=== PATIENT | female | born 2000 | race Caucasian/White ===

== ENCOUNTER 2020-02-11 11:54 | Outpatient (NON) | payer BC, SELFPAY ==
[2020-02-11 22:39] LABS: SARS-CoV-2 RNA PCR Negative
== END 2020-02-11 11:55 ==
PROVIDERS: PCP Physician Assistant; Visit Provider Physician Assistant
DX: R05 Cough (principal); J01.40 Acute pansinusitis, unspecified; Z20.828 Contact with and (suspected) exposure to other viral communicable diseases
CPT/HCPCS: 87635; C9803; U0003

== ENCOUNTER 2021-04-23 08:28 | Emergency (ER) | payer OTHER, SELFPAY ==
[2021-04-23] VITALS (8 sets, daily range): BP systolic 111–152; BP diastolic 82–113; PULSE 94–126; RESP 18–20; TEMP 36.1–36.8; O2SAT 98–100
--- NOTE | ~2021-04-23 | XR_ITS ---
EXAMINATION: XR chest 1V portable DATE: 04/23/2021 09:38 INDICATION: Shortness of breath and cough and dizziness. TECHNIQUE: A single frontal view of the chest was obtained. COMPARISON: Chest 2 views 11/26/2018, CT 11/26/2018 FINDINGS: The chest demonstrates clear lungs without pneumonia, pleural effusion, or pneumothorax. Th e heart size is normal. IMPRESSION: 1. No acute cardiopulmonary disease. Reviewed, dictated and finalized at location A. NESS OBJECTS ARCHITECT
--- NOTE | 2021-04-23 09:24 | ECG_ITS ---
Measurements Intervals [place] Rate: 96 P: 76 HI: 131 QRS: 83 QRSD: 108 T: 55 QT: 381 QTc: 481 Interpretive Statements SINUS RHYTHM NORMAL ECG Electronically Signed On 04-23-2021 18:20:16 BALLAST CLEANING OPERATOR by Derrick Fuller D.O.
--- NOTE | 2021-04-23 09:26 | ED.URI ---
HPI - URI/Sore Throat General Chief Complaint: Upper Respiratory Infection Stated Complaint: URI x3 weeks, Hives Time Seen by Provider: 04/23/21 09:14 Source: patient, RN notes reviewed and old records reviewed Mode of arrival: ambulatory Limitations: no limitations History of Present Illness HPI Narrative: This is a 21 year old female with history of IV drug use who presents for evaluation of URI symptoms with nausea, vomiting and shortness of breath. She developed runny nose, sinus drainage and congestion 3 weeks ago. She has greenish mucous when she blows of her nose and coughs. She states her symptoms have not improved. Her first week of symptoms she reports having fever 101 F. Last night, she develop nausea, vomiting and hives. Her hives have resolved. She does admit to using methamphetamine last night. She denies diarrhea, chest pain or abdominal pain. Her temperature last night was 99 F. She also complains of shortness of breath due to copious sinus drainage. She is unsure of sick contacts. She is vaccinated for covid. She has not sought treatment for her symptoms in past 3 weeks. Related Data Allergies Allergy/AdvReac Type Severity Reaction Status Date / Time Cephalosporins Allergy Swelling Verified 04/23/21 09:28 of Lip/Tongue/Throat Review of Systems Review of Systems: All systems reviewed & are unremarkable except as noted in HPI and below PMFSH Past Medical History Medical History (Updated 04/23/21 @ 12:27 by Siomara Malloy MD) Bipolar disorder Previous known suicide attempt Surgical History Surgical History (Updated 03/04/19 @ 12:47 by Luis Angel Santos) History of tonsillectomy Social History Social History (Updated 04/23/21 @ 09:36 by Siomara Malloy MD) Alcohol intake: never Substance use: current Substance use type: IV drugs and methamphetamine Gender identity (if verbalized by the patient): Female Exam Const: General: no acute distress and alert Orientation/consciousness: patient oriented x3 HENMT: Head: normocephalic and atraumatic General nose exam: No nasal discharge present Face and sinus: sinuses nontender and face symmetric Mouth: Yes Normal oral and palatal mucosa present, Yes lip normal, Yes tongue normal, Yes oropharynx normal and Yes moist mucous membranes Throat: posterior oropharynx normal, tonsils normal and uvula midline Eyes: Pupils: Equal, round and reactive pupils present EOM: EOMs intact bilaterally Resp: Effort & Inspection: normal respiratory effort and no retractions Auscultation: clear to auscultation bilaterally Cardio: Rate: tachycardic Rhythm: regular rhythm Heart sounds: no murmurs GI: GI Palp: Yes Soft to palpation, No Tenderness to palpation present (GI) and No Guarding due to palpation present (GI) Auscultation: normal bowel sounds Skin: General skin exam: normal color Rashes: no rashes Neuro: General: patient oriented x3, moves all extremities and CN's II-XI intact bilaterally Psych: Mental Status: mental status grossly normal Affect: normal affect Course Reevaluation(s) Reevaluation #1: PAtient was able to ambulate with oxygen saturation staying about 98% on room air. She was hydrated and I informed her that she has covid. I also discussed with patient when to return to ER. Date: 04/23/21 Time: 12:24 Vital Signs Vital signs: Vital Signs Temperature 96.9 F L 04/23/21 08:32 Pulse Rate 120 H 04/23/21 08:32 Respiratory Rate 18 04/23/21 08:32 Blood Pressure 131/86 04/23/21 08:32 Temperature 98.3 F 04/23/21 09:14 Pulse Rate 104 H 04/23/21 12:57 Respiratory Rate 20 04/23/21 12:57 Blood Pressure 130/82 04/23/21 12:57 Pulse Oximetry 100 04/23/21 12:57 MDM - URI/Sore Throat Lab Data Attestation: I reviewed the patient's lab results. Result diagrams: 04/23/21 10:07 04/23/21 10:07 Labs: Lab Results 04/23/21 04/23/21 04/23/21 Range/Units
[2021-04-23 10:17] LABS: Basophils Percent Auto 0.3 % (0.2-1.2); Eosinophils Percent Auto 0.2 % (0-4.4); Hematocrit 42.8 % (37.0-47.0); Hemoglobin 14.7 g/dL (12.0-15.0); Immature Granulocyte Absolute 0.02 K/mm3 (0.00-0.031); Immature Granulocyte Percent A 0.2 % (0-0.5); Lymphocytes Absolute Auto 1.89 K/mm3 (0.9-3.2); Lymphocytes Percent Auto 17.6 % (18.3-44.2); Mean Corpuscular HGB Conc 34.3 g/dl (32-36); Mean Corpuscular Hemoglobin 29.5 pg (26-34); Mean Corpuscular Volume 85.8 fl (80-100); Mean Platelet Volume 8.2 fl (7.4-10.4); Monocytes Absolute Auto 0.9 K/mm3 (0.1-0.6); Monocytes Percent Auto 8.3 % (2.6-8.5); Neutrophils Absolute Auto 7.9 K/mm3 (1.3-6.7); Neutrophils Percent Auto 73.4 % (45.5-73.1); Platelet Count Result 357 k/mm3 (150-375); Red Blood Count 4.99 M/mm3 (4.2-5.4); Red Cell Distribution Width 11.9 % (11.5-14.5); White Blood Count 10.7 K/mm3 (4.5-10.0)
[2021-04-23 10:27] LABS: Prothrombin Time 13.3 Seconds (11.1-14.7)
[2021-04-23 10:28] LABS: Partial Thromboplastin Time 30.1 SECONDS (22.3-36.8)
[2021-04-23 10:29] LABS: Alanine Aminotransferase 19 U/L (4-35); Albumin Level 4.7 g/dL (3.5-5.1); Alkaline Phosphatase 86 U/L (38-126); Anion Gap 11 mmol/L (8-16); Aspartate Amino Transferase 35 U/L (14-36); Bilirubin,Total 0.8 mg/dL (0.2-1.3); Blood Urea Nitrogen 15 mg/dL (7-17); Calcium 9.3 mg/dL (8.4-10.2); Carbon Dioxide 26 mmol/L (22-30); Chloride 101 mmol/L (98-107); Estimated CRCL calculation 99 ml/min; Estimated Glomerular Filt Rate > 60; Glucose 106 mg/dL (65-110); Lipase 45 U/L (23-300); Potassium 3.9 mmol/L (3.4-5.0); Sodium 138 mmol/L (137-145)
[2021-04-23 10:30] LABS: D Dimer 0.33 ug/mL (<0.48)
[2021-04-23 10:56] LABS: SARS-CoV-2 RNA PCR Positive
[2021-04-23] MEDS: ONDANSETRON INJ 4 MG/2 ML VIAL IV PUSH (10:56)
[2021-04-23] MEDS: LACTATED RINGERS 1,000 ML 999 ML IV CONT (10:57)
[2021-04-23] MEDS: SODIUM CHLORIDE 0.9% IV 1,000 ML 999 ML IV CONT (10:57)
[2021-04-23 10:58] LABS: Add Urine Microscopic? YES; Appearance Urine Clear (Clear); Bilirubin Urine Negative (Negative); Blood Urine Negative (Negative); Color Urine Yellow (Yellow); Glucose Urine UA Negative (Negative); Ketones Urine Negative (Negative); Leukocyte Esterase Ur Trace LEU/UL (Negative); Mucus Urine Few /lpf; Nitrate Urine Negative (Negative); Protein Urine 1+ mg/dL (Negative); Specific Grav Ur 1.025 (1.001-1.035); Squamous Epithelial Cell Urine Many /hpf (Few); Urobilinogen Urine Negative mg/dL (<2.0); WBC Urine 0-3 /hpf
--- NOTE | 2021-04-23 11:05 | PC.NURSE ---
THOR Malloy notified about moderate suicidal risk.
[2021-04-23 11:08] LABS: Lactic Acid Reflex 0.9 mmol/L (0.7-2.1)
--- NOTE | 2021-04-23 12:22 | PC.NURSE ---
patient ambulated with pulse ox and oxygen level was 98% while ambulating.
== END 2021-04-23 13:00 | disposition home or self-care (01) ==
PROVIDERS: Emergency Provider General Practice; PCP Physician Assistant
DX: U07.1 COVID-19 (principal); J06.9 Acute upper respiratory infection, unspecified
CPT/HCPCS: 36415; 71045; 80053; 81001; 81025; 83605; 83690; 83735; 85025; 85380; 85610; 85730; 87804; 93005; 96361; 96374; 99284; C9803; J2405; J7030; J7120; U0003; U0005

== ENCOUNTER 2021-05-03 17:12 | Emergency (ER) | payer OTHER, SELFPAY | END 2021-05-03 18:04 | disposition left against medical advice (07) | PROVIDERS: PCP Physician Assistant | DX: Z53.21 Procedure and treatment not carried out due to patient leaving prior to being seen by health care provider (principal) | CPT/HCPCS: 99199 ==

== ENCOUNTER 2024-09-06 05:59 | Emergency (ER) | payer BC, SELFPAY ==
--- OUTSIDE RECORDS SUMMARY | 2024-09-06 06:01 | XMS_ITS | Referral Summary ---
Author Organization [facility] Address [address] [place] [address] Care Team Providers Care Custom Applicator Name Role Phone No, Physician Primary Care Provider [phone] Jaci Chaudhari Unavailable [phone] Allergies Active Allergy Reactions Criticality Noted Date Comments Sulfa (Sulfonamide Antibiotics) Hives Medium 09/16 Medications busPIRone (BUSPAR) 15 mg tabletIndications: Generalized Anxiety Disorder Take 1 tablet (15 mg total) by mouth 3 (three) times a day 90 tablet 2 0 Active sulfacetamide (BLEPH-10) 10 % ophthalmic solutionIndication s:Bacterial Conjunctivitis Administer 1-2 drops into both eyes every 4 (four) hours 5 mL 2 Active Active Problems Problem Noted Date Diagnosed Date Family planning counseling 08/08/2020 Assessment & Plan (08/08/2020 11:11 PM CDT): Discussed family planning with patient at length. Reviewed control options but she still is adamant about not wanting to initiate new control. She verbalizes the understanding that her Depo-Provera no longer is covering her for prevention and that she could get and any time. She can always use condoms if she wants to have contraception on board until she is able to get back in to the office if she changes her mind. Encouraged vitamin. She states she prefers to get it [id number]. Also discussed a marijuana exposure as well as smoking exposure during early and encouraged her to stop so that that would not have exposure if this does happen. Strongly encouraged her to also stop so she can seek care for her mental health concerns again to have the safest possible. She may call at any time for assistance. Annual physical exam 05/16/2020 Folliculitis 05/08/2020 Assessment & Plan (05/08/2020 4:47 PM WELFARE VISITOR): Appears to be folliculitis. Probably secondary to shaving. Rx keflex sent to pharmacy. Stop shaving. If sxs increase she is to followup sooner. Positive depression screening 05/08/2020 Assessment & Plan (05/08/2020 4:53 PM WELFARE VISITOR): Encouraged to make and keep appointment with counselor. Have provided names multiple times. She is planning on going to [facility]. Screening examination for ST D (sexually transmitted disease) 05/08/2020 Need for immunization against influenza 03/01/20 20 Assessment & Plan (03/01/2020 11:27 AM WELFARE VISITOR): Updated in office today Cough 02/02/2020 Assessment & Plan (02/10/2020 4:42 PM CDT): Advised her to assume as test has not been completed that she could still have covid 19 despite not having all of symptoms. Will fax order for test to [facility] at her request. Asked her to contact office if she hasn't heard result in 48h. Advised f/u in 1w if not improving, sooner if worsening. Advised her to start claritin 10mg po every day. Advised eating when starting zpack as it can cause gi upset. Assessment & Plan (02/02/2020 2:05 PM CDT): Advised her to continue with sudafed. Will order covid-19 testing, advised quarantining until results are available. Advised to er if symptoms are worsening. Advised tylenol q6h prn fever. Nasal congestion 02/02/2020 Assessment & Plan (02/02/2020 2:05 PM CDT): Advised her to continue with sudafed. Will order covid-19 testing, advised quarantining until results are available. Advised to er if symptoms are worsening. Advised tylenol q6h prn fever. Acute non-recurrent pansinusitis 02/02/2020 Assessment & Plan (02/10/2020 4:42 PM CDT): Advised her to assume as test has not been completed that she could still have covid 19 despite not having all of symptoms. Will fax order for test to [facility] at her request. Asked her to contact office if she hasn't heard result in 48h. Advised f/u in 1w if not improving, sooner if worsening. Advised her to start claritin 10mg po every day. Advised eating when starting zpack as it can cause gi upset. Assessment & Plan (02/02/2020 2:05 PM CDT): Advised her to continue with sudafed. Will order covid-19 testing, advised quarantining until results are available. Advised to er if symptoms are worsening. Advised tylenol q6h prn fever. Toe pain 11/16/2019 Assessment & Plan (11/16/2019 9:38 PM CDT): Seems to be resolving. Recommend to monitor. Reviewed nail cutting. Encounter for management and injection of depo-P rovera 11/10/2019 Assessment & Plan (05/08/2020 4:47 PM WELFARE VISITOR): DepoProvera due May 17. ; Assessment & Plan (03/01/2020 11:26 AM WELFARE VISITOR): DepoProvera given today from office supply Due for next injection May 17 Assessment & Plan (12/13/2019 3:18 PM CDT): UPT in office was negative. Start DepoProvera as she is on D 3 of her period. F>u in 12 weeks (Feb 25-) for next injection and in 4 weeks to remove the Implanon. Assessment & Plan (11/16/2019 9:39 PM CDT): UPT in office was indeterminate. Possible positive line present. Recommend Bhcg before initiating the DepoProvera. Needs to be within 7 days of starting period. Pain of left hand 11/09/2019 Assessment & Plan (11/09/2019 7:39 PM CDT): Ice to area. Check xrays. Dysuria 11/09/2019 Assessment & Plan (11/09/2019 7:39 PM CDT): Send urine for culture-- Macrobid 100mg bid x 5 days. Reviewed proper wiping. Moderate episode of recurrent major depressive d isorder 10/02/2019 Assessment & Plan (08/08/2020 11:10 PM CDT): Continue to follow with [facility] psychiatrist and counseling Assessment & Plan (05/08/2020 4:54 PM WELFARE VISITOR): Probable bipolar diagnosis. Has tried multiple meds but doesn't consistently stay on them. Encouraging appt with psychiatry. Plans to call [place] and has contact information. Assessment & Plan (03/01/2020 11:29 AM WELFARE VISITOR): Strongly encouraged patient to follow-up with the psychiatrist. Encouraged her to call [facility] notice it is possible to make the appointment. She is currently using the BuSpar with fair control of her symptoms but there is still a strong tendency towards bipolar that has been untreated. She voices understanding will try to call today. Assessment & Plan (01/14/2020 8:08 PM CDT): Depression vs bipolar vs other dx. Pt has stopped her medication multiple times. Recommend referral to psychiatrist and encouraged trying another counselor. Will monitor. Assessment & Plan (01/11/2020 3:19 PM CDT): Continue BuSpar x3. She stop the Zoloft and does not want to start anything at this point. Encouraged her to come to monitor closely as her emotions seem to swing quickly. Assessment & Plan (11/09/2019 7:40 PM CDT): Increase Zoloft to 100mg and Buspar to 15mg tid. Followup in 4 weeks. Assessment & Plan (10/02/2019 10:16 PM CDT): Discussed patients mental health at length. Discused considering inpatient vs outpatient care. She wants to try outpatient first. If sxs increase will immediately consider ER evaluation. Will start with the diagnosis of anxiety and depression. Discussed referral to psychiatrist. She is willing but will at least start medication for the depression/anxiety. Reviewed risks, benefit, alternatives, side effects and proper use. Start Zoloft and Buspar. She has suicide hotline number on her take home sheet as well as our contact information. She agrees to call immediately if she has suicidal thoughts/plans. Strongly encouraged counseling. Provided online contacts as well as local. She will call today. Encouraged to find a peaceful living situation. Irregular menses 05/15/2019 Assessment & Plan (08/08/2020 11:09 PM CDT): Probably secondary to Depo-Provera use but patient is not using contraception so if she does not have a period in early August as expected she will need to do a test. Assessment & Plan (05/15/2019 11:02 PM WELFARE VISITOR): Will monitor after removing Nexplanon--- Will start NuvaRing. Resolved Problems Problem Noted Date Diagnosed Date Resolved Date BMI less than 19,adult 05/06/202007/28 Assessment & Plan (05/06/2020 10:45 AM WELFARE VISITOR): Weight/BMI is in healthy range. Continue healthy lifestyle to maintain. Nexplanon removal 01/12/2020 03/01/2020 Assessment & Plan (01/14/2020 8:07 PM CDT): Pt presents today for Nexplanon Removal. Discussed Nexplanon removal with the patient. Reviewed procedure, risks, benefits, alternatives. All questions were answered and patient desires to proceed. The device was palpated in the right arm. The arm was positioned and cleansed with betadine x3. Sterile field created. Area infiltrated with Xylocaine with Epi. Once good anesthesia was obtained an incision was made with blade. Device was pushed out through the opening and grasped by MA with mosquito forceps. She had a lot of scar tissue holding the device the place which required the tissue to be wiped down and device removed fully intact. Steristrips applied. Minimal bleeding. Full sensation in arm/fingers. Pressure bandage applied. Pt tolerated well. Keep bandage of for 2-3 days. Allow steristrips to just fall off. Call if has s/s infection. . Uses control 12/13/2019 0 Assessment & Plan (01/11/2020 3:19 PM CDT): Will initiate Depo-Provera today. UPT was negative in office. She will continue to obtain injection every 12 weeks. Will remove Nexplanon in about a month. Crush injury to finger, initial encounter 06/28/2019 10/02/2019 Assessment & Plan (06/28/2019 10:55 PM CDT): Finger crushed in the car. Only the very tip is tender and the nail. Xrays are probably not necessary. Recommend ice/elevation and NSAIDs. Put her in a finger splint for comfort and to encourage others to avoid the hand/finger. Will reassess at next weeks appt. BMI less than 19,adult 06/28/201905/06 Assessment & Plan (03/01/2020 11:22 AM WELFARE VISITOR): Weight/BMI is in healthy range. Continue healthy lifestyle to maintain. \ Assessment & Plan (12/13/2019 3:14 PM CDT): Weight/BMI is in healthy range. Continue healthy lifestyle to maintain. Assessment & Plan (11/09/2019 7:40 PM CDT): Weight/BMI is in healthy range. Continue healthy lifestyle to maintain. Assessment & Plan (06/28/2019 10:56 PM CDT): Weight/BMI is in healthy range. Continue healthy lifestyle to maintain. Annual physical exam 05/15/2019 020 Assessment & Plan (05/15/2019 11:02 PM WELFARE VISITOR): Encouraged healthy lifestyle, good nutrition and exercise. Encouraged Calcium and Vitamin D and weight bearing exercise for bone health. Reviewed immunizations Reviewed age appropirate screenings. Declines STD screening Other fatigue 05/15/2019 10/02/2019 Assessment & Plan (05/15/2019 11:04 PM WELFARE VISITOR): Probably multifactorial. Check labs and followup to re-evaluate BMI less than 19,adult 05/15/201911/08 Assessment & Plan (06/27/2019 11:46 AM CDT): BMI Follow-up includes: Discussed diet and exercising counseling. Assessment & Plan (05/15/2019 11:03 PM WELFARE VISITOR): Weight/BMI is in healthy range. Continue healthy lifestyle to maintain. control counseling 05/15/201905/2019 Assessment & Plan (05/15/2019 11:03 PM WELFARE VISITOR): Reviewed with patient the control options including ocp, ring, patch, Nexplanon, DepoProvera, IUDs and condoms/barriers. Reviewed risks, benefits, alternatives, side effects and proper use. She is most interested in nuva Ring. Will have her insert the Ring on Sunday. Leave in 3 weeks and then take out 4th week to have a cycle. Will have her followup in June to remove Nexplanon so she wont have a break in contraception. Chlamydia 01/12/2019 11/09/2019 Assessment & Plan (01/12/2019 4:31 PM CDT): Confirmed upon return of results. Pt was notified: Culture returned positive for Chlamydia. This is a sexually transmitted disease that can be fully treated with an antibiotic. --Zithromax 1gm one time dose. --Partner must be treated. Refrain from intercourse until both are treated. --Report to Health Department. Can repeat a test of cure in 2 weeks if desired. Set appointment Screening examination for ST D (sexually transmitted disease) 01/12/2019 10/02/2019 Assessment & Plan (05/15/2019 11:04 PM WELFARE VISITOR): Pt declines Assessment & Plan (01/12/2019 4:32 PM CDT): Check STDs. No known exposure. Encouraged condoms/safe sexual practice. Dysuria 01/12/2019 10/02/2019 Assessment & Plan (01/12/2019 4:32 PM CDT): Send urine for culture. Empirically treat with macrobid. Nexplanon in place 01/01/2019 0 Overview (01/01/2019): 05/2016 placed at [facility]. Assessment & Plan (12/13/2019 3:14 PM CDT): Plan removal after been on DepoProvera for a month. Assessment & Plan (10/02/2019 10:09 PM CDT): Will schedule removal at next visit. Assessment & Plan (05/15/2019 11:03 PM WELFARE VISITOR): Plan removal in June Immunizations Immunization Administration Dates Next Due DTP 03/11/2001 DTaP 11/26/2001,2000,2000 HPV, Unspecified 05/14/2018 HPV9 05/14/2018 Hep B, Adolescent or Pediatric 2000,1999 HiB 2000,2000 IPV 03/11/2001,2000,2000 Influenza, Quadrivalent, Spl it, Preservative Free, Intramuscular 03/01/2020 Influenza, Split 03/09/2009 Influenza, Unspecified 05/14/2019(Deferred: Caro ent Refused) Social History Tobacco Use Types Packs/Day Years Used Date Smoking Tobacco: Never Smokeless Tobacco: Never Tobacco Cessation:Counseling Given: Not Answered Alcohol Use Standard Drinks/Week Comments Never 0 (1 standard drink = 0.6 oz pur e alcohol) AUDIT-C Answer Date Recorded Frequency of Alcohol Consumption Never 01/01/2019 Average Number of Drinks Not on file 019 Frequency of Binge Drinking Not on file 12/15 PHQ-2 Answer Date Recorded PHQ-2 Total Score (If total score is 3 or more points, staff should administer the PHQ-9) 3 05/06/2020 Personal Safety Answer Date Recorded Have you ever been in or are you currently in a harmful physical or emotional relationship or is someone making you feel afraid or unsafe? Denies 05/08/2024 Comments Unknown Sex and Gender Information Value Date Recorded Sex Assigned at Not on file Legal Sex Female 9:14 AM WELFARE VISITOR Gender Identity Not on file Sexual Orientation Not on file Occupation Industry Job Start Date Job End Date unemployed Not on file Not on file Not on file Last Filed Vital Signs Vital Sign Reading Time Taken Comments Blood Pressure 101/60 05/09/2024 3:30 AM WELFARE VISITOR Pulse 93 05/09/2024 3:45 AM WELFARE VISITOR Temperature 36.3 C (97.3 F) 05/08/2024 11:19 PM WELFARE VISITOR Respiratory Rate 18 05/09/2024 2:44 AM WELFARE VISITOR Oxygen Saturation 98% 05/09/2024 3:45 AM WELFARE VISITOR Inhaled Oxygen Concentration - - Weight 58.2 kg (128 lb 4.9 oz) 10/13/2022 11:38 AM CDT Height 170.2 cm (5' 7 ) 02/10/2022 4:47 AM CDT Body Mass Index 20.1 02/10/2022 4:47 AM CDT Plan of Treatment Not on file Procedures Procedure Name Priority Date/Time Associated Diagnosis Comments HEPATITIS PANEL, ACUTE Routine 01/08/2019 2:01 PM CDT Screening examination for STD (sexually transmitted disease) from Last 3 Months or Most Recently Relevant to Health Maintenance Results * Hepatitis panel, acute (01/08/2019 2:01 PM CDT) Hep A IgM NON-REACT SORAYA NON-REACT SORAYA [facility] [place] HepBsAg NON-REACT SORAYA NON-REACT SORAYA [facility] [place] Hep B core IgM NON-REACT SORAYA NON-REACT SORAYA [facility] [place] Hep C Ab NON-REACT SORAYA NON-REACT SORAYA [facility] [place] SIGNAL TO CUT-OFF 0.08 <1.00 [facility] [place] Comment: HCV antibody was non-reactive. There is no laboratory evidence of HCV infection. In most cases, no further action is required. However, if recent HCV exposure is suspected, a test for HCV RNA (test code 68890) is suggested. For additional information please refer to http://education.Ventario/faq/QBA83q3 (This link is being provided for informational/ educational purposes only.) Blood specimen (specimen) 01/08/2019 2:01 PM CDT 01/08/2019 2:01 PM CDT Narrative [facility] - 01/09/2019 7:17 PM CDT FASTING:NO FASTING: NO Resulting Agency Comment Performing Organization Information: Site ID: [id number] Name: [facility] Address: [address] [place] [address] [place] [address] Director: Nolan Lacy D.O., MPH [facility] MICROBIOLOGY - GENERAL ORDERABLES Final Result [facility] [place] from Last 3 Months or Most Recently Relevant to Health Maintenance Insurance [facility] [place] [address] [facility] Care Teams Custom Applicator Relationship Specialty Start Date End Date No, Physician PCP - General Neurology 10/13/22 Jaci Chaudhari PA [address] [facility] [address] [place] [address] Internal Medicine 10/13/22
--- OUTSIDE RECORDS SUMMARY | 2024-09-06 06:01 | XMS_ITS | Clinical Summary ---
Author Organization [facility] Address [address] [place] [address] Phone Care Team Providers Care Aerospace Project Manager Name Role Phone Liam Chaudhariwna Nataly PAC Primary Care Provider [phone] Allergies Active Allergy Reactions Criticality Noted Date Comments Sulfa Antibiotics Swelling 12/14/2021 Medications busPIRone (BUSPAR) 15 MG Tablet Take 15 mg by mouth daily. 11/13/2019 Active Active Problems Problem Noted Date Diagnosed Date Acute pyelonephritis 12/15/2021 Marijuana abuse 12/15/2021 Methamphetamine abuse 12/15/2021 Overview (12/15/2021): iv Social History Tobacco Use Types Packs/Day Years Used Date Smoking Tobacco: Never Smokeless Tobacco: Never Alcohol Use Standard Drinks/Week Comments Never 0 (1 standard drink = 0.6 oz pur e alcohol) Comments No Sex and Gender Information Value Date Recorded Sex Assigned at Not on file Legal Sex Female 11:42 PM CDT Gender Identity Not on file Sexual Orientation Not on file Last Filed Vital Signs Vital Sign Reading Time Taken Comments Blood Pressure 108/70 10/18/2022 8:15 PM CDT Pulse 93 10/18/2022 8:15 PM CDT Temperature 36.4 C (97.6 F) 10/18/2022 6:27 PM CDT Respiratory Rate 16 10/18/2022 8:15 PM CDT Oxygen Saturation 100% 10/18/2022 8:15 PM CDT Inhaled Oxygen Concentration - - Weight 56.7 kg (125 lb) 10/18/2022 6:27 PM CDT Height 170.2 cm (5' 7 ) 10/18/2022 6:27 PM CDT Body Mass Index 19.58 10/18/2022 6:27 PM CDT Plan of Treatment Health Maintenance Due Date Last Done Comments Hepatitis C Virus (HCV) Screening 2000 TdaP Immunization 2000 Hepatitis B Immunization (3 of 3 - 3-dose series) 2000 2000, 2000 Human Papillomavirus (HPV) Immunization (2 - 3-dose series) 06/11/2018 05/14/2018, 05/14/2018 Pap Smear 2021 Influenza Immunization (#1) 2023 03/01/2020 SARS-COV-2 Immunization ( season) 2023 09/30/2020, 09/02/2020 Respiratory Syncytial Virus (RSV) Immunization (Adult) (1 - 1-dose 75+ series) 2075 DTaP/Tdap/Td Immunization Discontinued 2001, 03/11/2001, 2000, Additional history exists Meningococcal Immunization (ACWY) Aged Out No longer eligible based on patient's age to complete this topic Pneumococcal Immunization Combined Aged Out No longer eligible based on patient's age to complete this topic Rotavirus Immunization Aged Out No lo nger eligible based on patient's age to complete this topic Insurance [place]ID [place] Advance Directives * Full Code (Latest Code Status on File) Date Activated Date Inactivated Comments 12/15/2021 3:33 AM 12/17/2021 3:16 PM CPR-Full Treat ment: FULL ARREST: Attempt Resuscitation/CPR wit intubation and mechanical ventilation. PRE-ARREST: Use entire range of life support measures to stabilize the patient. Care Teams Aerospace Project Manager Relationship Specialty Start Date End Date Jaci Chaudhari, MAGDALENA PCP - General Physician Outgoing Inspector 12/17/21
--- OUTSIDE RECORDS SUMMARY | 2024-09-06 06:01 | XMS_ITS | Clinical Summary ---
Author Organization [facility] Address [address] [place] [address] Care Team Providers Care External Auditor Name Role Phone Unavailable Primary Care Provider Unavailabl e Source Comments [facility],non-owned Affiliates and Associated Physician Practices is amultiple site organization consisting of ambulatory clinics and hospital sitesin [place], [place], [place] and [place]. This disclosure is being madepursuant to the Care Everywhere program and may not contain all information available regarding this patient. Last updated 18.[facility] Allergies Active Allergy Reactions Criticality Noted Date Comments Sulfa Drugs Anaphylaxis High 08/15/2023 Medications * Be aware that medications may not be up to date on this document. Alwaysverify current medications with the patient. Etonogestrel (NEXPLANON SC) Activ e ALBUTEROL IN Active fluticasone propionate (FLONASE) 50 MCG/ACT nasal sprayIndications :Acute pharyngitis, unspecified etiology [place] 2 Sprays into each nostril once daily 1 Bottle 7 Active Additional Information Patient not taking.Reported on 05/07/2018 Loratadine (CLARITIN PO) Active Family History Medical History Relation Name Comments Hypertension Mother Relation Name Status Comments Mother Social History Tobacco Use Types Packs/Day Years Used Date Smoking Tobacco: Never Smokeless Tobacco: Never Tobacco Cessation:Counseling Given: Not Answered AUDIT-C Answer Date Recorded Q1: How often do you have a drink containing alcohol? Never 08/15/2023 Q2: How many drinks containi ng alcohol do you have on a typical day when you are drinking? Patient does not drink Q3: How often do you have si x or more drinks on one occasion? 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 Gender Identity Not on file Sexual Orientation Not on file Last Filed Vital Signs Vital Sign Reading Time Taken Comments Blood Pressure 110/59 08/15/2023 2:39 PM CDT Pulse 90 08/15/2023 11:15 AM CDT Temperature 37 C (98.6 F) 08/15/2023 11:15 AM CDT Respiratory Rate 18 08/15/2023 11:15 AM CDT Oxygen Saturation 98% 08/15/2023 2:39 PM CDT Inhaled Oxygen Concentration - - Weight 61.2 kg (135 lb) 08/15/2023 11:15 AM CDT Height 170.2 cm (5' 7 ) 08/15/2023 11:15 AM CDT Body Mass Index 21.14 08/15/2023 11:15 AM CDT Plan of Treatment Health Maintenance Due Date Last Done Comments PAP SMEAR 2000 HPV VACCINE (1 - 3-dose series) 2015 HEPATITIS C SCREENING 03/15/2018 DTAP/TDAP/TD VACCINES (1 - Tdap) 2019 HEPATITIS B VACCINE (1 of 3 - 19+ 3-dose series) 2019 CHLAMYDIA/GONORRHEA SCREENING 05/05/2023 05/05/2022 COVID-19 VACCINE (3 - 2023-2 5 season) 2023 09/30/2020, 09/02/2020 DEPRESSION SCREENING 04/16/2024 INFLUENZA VACCINE (Season Ended) 2024 03/01/2020, 03/09/2009 ZOSTER VACCINE (1 of 2) 2050 HIV SCREENING Completed 05/05/2022 HIB VACCINE Aged Out No longer eligi ble based on patient's age to complete this topic MENINGOCOCCAL (Group B) VACCINE SHARED DECISION-MAKING Aged Out No longer eligible based on patient's age to complete this topic MENINGOCOCCAL GROUPS A/C/Y/W VACCINE Aged Out No longer eligible b ased on patient's age to complete this topic PNEUMOCOCCAL VACCINE Aged Out No long er eligible based on patient's age to complete this topic Insurance MEDICAID - OUT OF [facility] MEDICAID - [place] [facility]
--- OUTSIDE RECORDS SUMMARY | 2024-09-06 06:01 | XMS_ITS | Clinical Summary ---
Author Organization [facility] Address [address] [place] [address] Care Team Providers Care Network Support Engineer Name Role Phone No, Physician Primary Care Provider [phone] Jaci Chaudhari Unavailable Allergies Active Allergy Reactions Criticality Noted Date [...] She states she prefers to get it [id number]. Also discussed a marijuana exposure as well [...] 05/08/2020 Assessment & Plan (05/08/2020 4:47 PM PUTTY GLAZER): Appears to be folliculitis. Probably secondary to shaving. Rx keflex sent to pharmacy. Stop shaving. If sxs increase she is to followup sooner. Positive depression screening 05/08/2020 Assessment & Plan (05/08/2020 4:53 PM PUTTY GLAZER): Encouraged to make and keep appointment with counselor. Have provided names multiple times. She is planning on going to [employer]. Screening examination for ST D (sexually transmitted disease) 05/08/2020 Need for immunization against influenza 03/01/20 20 Assessment & Plan (03/01/2020 11:27 AM PUTTY GLAZER): Updated in office today Cough 02/02/2020 Assessment [...] 11/10/2019 Assessment & Plan (05/08/2020 4:47 PM PUTTY GLAZER): DepoProvera due May 17. ; Assessment & Plan (03/01/2020 11:26 AM PUTTY GLAZER): DepoProvera given today from office supply Due [...] 11:10 PM CDT): Continue to follow with [facility] psychiatrist and counseling Assessment & Plan (05/08/2020 4:54 PM PUTTY GLAZER): Probable bipolar diagnosis. Has tried multiple meds but doesn't consistently stay on them. Encouraging appt with psychiatry. Plans to call [place] and has contact information. Assessment & Plan (03/01/2020 11:29 AM PUTTY GLAZER): Strongly encouraged patient to follow-up with the psychiatrist. Encouraged her to call [facility] notice it is possible to make the [...] test. Assessment & Plan (05/15/2019 11:02 PM PUTTY GLAZER): Will monitor after removing Nexplanon--- Will start NuvaRing. Resolved Problems Problem Noted Date Diagnosed Date Resolved Date BMI less than 19,adult 05/06/202007/28 Assessment & Plan (05/06/2020 10:45 AM PUTTY GLAZER): Weight/BMI is in healthy range. Continue healthy [...] 06/28/201905/06 Assessment & Plan (03/01/2020 11:22 AM PUTTY GLAZER): Weight/BMI is in healthy range. Continue healthy [...] 020 Assessment & Plan (05/15/2019 11:02 PM PUTTY GLAZER): Encouraged healthy lifestyle, good nutrition and exercise. Encouraged Calcium and Vitamin D and weight bearing exercise for bone health. Reviewed immunizations Reviewed age appropirate screenings. Declines STD screening Other fatigue 05/15/2019 10/02/2019 Assessment & Plan (05/15/2019 11:04 PM PUTTY GLAZER): Probably multifactorial. Check labs and followup to re-evaluate BMI less than 19,adult 05/15/201911/08 Assessment & Plan (06/27/2019 11:46 AM CDT): BMI Follow-up includes: Discussed diet and exercising counseling. Assessment & Plan (05/15/2019 11:03 PM PUTTY GLAZER): Weight/BMI is in healthy range. Continue healthy lifestyle to maintain. control counseling 05/15/201905/2019 Assessment & Plan (05/15/2019 11:03 PM PUTTY GLAZER): Reviewed with patient the control options including [...] 10/02/2019 Assessment & Plan (05/15/2019 11:04 PM PUTTY GLAZER): Pt declines Assessment & Plan (01/12/2019 4:32 [...] visit. Assessment & Plan (05/15/2019 11:03 PM PUTTY GLAZER): Plan removal in June Immunizations Immunization Administration Dates Next Due DTP 03/11/2001 DTaP 11/26/2001,2000,2000 HPV, Unspecified 05/14/2018 HPV9 05/14/2018 Hep B, Adolescent or Pediatric 2000,1999 HiB 2000,2000 IPV 03/11/2001,2000,2000 Influenza, Quadrivalent, Spl it, Preservative Free, Intramuscular 03/01/2020 Influenza, Split 03/09/2009 Influenza, Unspecified 05/14/2019(Deferred: Caro ent Refused) Surgical History Surgery Date Site/Laterality Comments TONSILLECTOMY Medical History Medical History Date Comments Drug abuse (HCC) Family History Medical History Relation Name Comments Alcohol abuse Father Alcohol abuse Mother Hypertension Mother Relation Name Status Comments Father Alive Mother Alive Social History Tobacco Use Types Packs/Day Years [...] on file Legal Sex Female 9:14 AM PUTTY GLAZER Gender Identity Not on file Sexual Orientation Not on file Occupation Industry Job Start Date Job End Date unemployed Not on file Not on file Not on file Obstetrics History Last Filed Vital Signs Vital Sign Reading Time Taken Comments Blood Pressure 101/60 05/09/2024 3:30 AM PUTTY GLAZER Pulse 93 05/09/2024 3:45 AM PUTTY GLAZER Temperature 36.3 C (97.3 F) 05/08/2024 11:19 PM PUTTY GLAZER Respiratory Rate 18 05/09/2024 2:44 AM PUTTY GLAZER Oxygen Saturation 98% 05/09/2024 3:45 AM PUTTY GLAZER Inhaled Oxygen Concentration - - Weight 58.2 kg (128 lb 4.9 oz) 10/13/2022 11:38 AM CDT Height 170.2 cm (5' 7 ) 02/10/2022 4:47 AM CDT Body Mass Index 20.1 02/10/2022 4:47 AM CDT Plan of Treatment Health Maintenance Due Date Last Done Comments Cervical Cancer Screening 2000 DTaP/Tdap/Td Vaccine (5 - Tdap) 2011 11/26/2001, 03/11/2001, 2000, Additional history exists Varicella Vaccines (1 of 2 - 13+ 2-dose series) 2013 HPV Vaccines (2 - 3-dose series) 06/11/2018 05/14/2018, 05/14/2018 Regular Well Visit/Exam 18-64 05/14/2020 05/14/2019 Depression Screening 05/06/2021 05/06/2020, 03/01/2020, 02/10/2020, Additional history exists Covid-19 Vaccine ( season) 2023 09/30/2020, 09/02/2020 Influenza Vaccine (Season Ended) 2024 03/01/2020, 03/09/2009 Hepatitis B Screening Completed 2000, 000 Hepatitis C Screening Completed 01/08/2019, 019 Pneumococcal vaccine <65 Aged Out No longer eligible based on patient's age to complete this topic Procedures Procedure Name Priority Date/Time Associated Diagnosis [...] a test for HCV RNA (test code 74655) is suggested. For additional information please refer to http://education.Blacklane/faq/TRT71x6 (This link is being provided for informational/ educational purposes only.) Blood specimen (specimen) 01/08/2019 2:01 PM CDT 01/08/2019 2:01 PM CDT Narrative [facility] - 01/09/2019 7:17 PM CDT FASTING:NO FASTING: NO Resulting Agency Comment Performing Organization Information: Site ID: [id number] Name: [facility] Address: [address] [address] Director: Nolan Lacy D.O., MPH Jaci CAMACHO LAB MICROBIOLOGY - GENERAL ORDERABLES Final Result [facility]I Robledo from Last 3 Months or Most Recently Relevant to Health Maintenance Insurance [facility] PLAN DOUG MIRELES [facility] Care Teams Network Support Engineer Relationship Specialty Start Date End Date No, Physician PCP - General Neurology 10/13/22 Jaci Chaudhari PA [address] [place] [address] Internal Medicine 10/13/22
[2024-09-06 06:03] VITALS: BP 96/51; PULSE 115; RESP 17; TEMP 36.7; O2SAT 100
--- NOTE | 2024-09-06 07:15 | ED_ITS ---
HPI - General Adult General Chief complaint: Skin/Abscess/Foreign Body Stated complaint: spider bite R forearm Time Seen by Provider: 09/06/24 06:53 History of Present Illness HPI narrative: 24-year-old female that approximately 12 weeks presents to the emergency department for evaluation for a suspected spider bite to her right forearm. Patient states this happened approximately 24 hours ago. Patient does have an area swelling on the right forearm with no localized erythema. Patient states the bite woke her up from sleep. Patient did take a dose of doxycycline. Related Data Allergies Allergy/AdvReac Type Severity Reaction Status Date / Time Sulfa (Sulfonamide Allergy Mild Unknown Verified 09/06/24 06:00 Antibiotics) Review of Systems Review of Systems: All systems reviewed & are unremarkable except as noted in HPI and below PMFSH Past Medical History Medical History (Updated 09/06/24 @ 07:18 by Jean Claude Mcintyre MD) Bipolar disorder Previous known suicide attempt Surgical History Surgical History (Updated 03/04/19 @ 12:47 by Luis Angel Santos) History of tonsillectomy Social History Social History (Updated 04/23/21 @ 09:36 by Siomara Malloy MD) Alcohol intake: never Substance use: current 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 HEAD: normocephalic, atraumatic. EYES: PERRLA/EOMI, conjunctivae clear. NOSE: Normal no drainage EARS:TMS clear with good light reflex. THROAT: Pharynx clear, no exudate. NECK: Supple. No adenopathy, no masses. RESPIRATORY: Airway patent, respirations nonlabored. Clear to auscultation dimple aterally, no rales, rhonchi, wheezing. CARDIOVASCULAR: Regular rate and rhythm without murmurs rubs or gallops. ABDOMINAL: Soft, nontender, nondistended, normal bowel sounds MUSCULOSKELETAL: Moves all extremities. Strength/ROM intact, No edema, No calf tenderness. NEURO: Alert. Cranial nerves II through XII intact. Good gait. Good coordination SKIN: Suspected bite right forearm with localized swelling and no localized erythema or fluctuance, no streaking Course Vital Signs Vital signs: Vital Signs Temperature 98.1 F 09/06/24 06:03 Pulse Rate 115 H 09/06/24 06:03 Respiratory Rate 17 09/06/24 06:03 Blood Pressure 96/51 L 09/06/24 06:03 Pulse Oximetry 100 09/06/24 06:03 Oxygen Delivery Room Air 09/06/24 06:03 Temperature 98.1 F 09/06/24 06:03 Pulse Rate 115 H 09/06/24 06:03 Respiratory Rate 17 09/06/24 06:03 Blood Pressure 96/51 L 09/06/24 06:03 Pulse Oximetry 100 09/06/24 06:03 Oxygen Delivery Room Air 09/06/24 06:03 Medical Decision Making MDM Narrative Medical decision making narrative: [age] old female presents to the emergency department for evaluation for suspected spider bite to right forearm. Patient did take a dose of doxycycline at home. Patient is approximately 12 weeks . Patient will be started on Keflex here in the emergency department. Patient will be discharged home on Keflex. No evidence abscess and patient is neurovascularly intact. Patient was instructed have close follow-up with primary care physician. Differential Diagnosis Differential Diagnosis: Hematoma, insect bite, cellulitis, abscess, compartment syndrome Vital Signs Vital Signs: Vital Signs Temperature 98.1 F 09/06/24 06:03 Pulse Rate 115 H 09/06/24 06:03 Respiratory Rate 17 09/06/24 06:03 Blood Pressure 96/51 L 09/06/24 06:03 Pulse Oximetry 100 09/06/24 06:03 Oxygen Delivery Room Air 09/06/24 06:03 Temperature 98.1 F 09/06/24 06:03 Pulse Rate 115 H 09/06/24 06:03 Respiratory Rate 17 09/06/24 06:03 Blood Pressure 96/51 L 09/06/24 06:03 Pulse Oximetry 100 09/06/24 06:03 Oxygen Delivery Room Air 09/06/24 06:03 Discharge Plan Discharge Clinical Impression: Spider bite Patient Disposition: Home Condition: Stable Instructions: Antibiotic Form, Cellulitis (ED), Insect Bite or Sting (ED) Additional Instructions: Antibiotic as directed until completed. Have close follow-up with your primary care physician for a wound check. If you have any worsening symptoms then please call or return to the emergency department. Patient Language: Macedonian Prescriptions: New cephalexin 500 mg capsule 500 mg PO Q12H 7 Days Qty: 14 0RF No Action albuterol sulfate 90 mcg/actuation HFA aerosol inhaler 2 puff inhalation QID PRN (Reason: shortness of breath or wheezing) Qty: 6.7 0RF doxycycline monohydrate 100 mg capsule 100 mg PO BID Qty: 14 0RF Follow-up/Referrals: Watson,DOUG Beatty [Non-Staff] -
--- OUTSIDE RECORDS SUMMARY | 2024-09-06 07:25 | XMS_ITS | Clinical Summary ---
Author Organization [facility] Address [address] [place] [address] Care Team Providers Care Director Of Healthcare Systems Name Role Phone No, Physician Primary Care Provider [phone] Jaci Chaudhari Unavailable [phone] Allergies Active Allergy Reactions Criticality Noted Date [...] She states she prefers to get it [id number]. Also discussed a marijuana exposure as well [...] 05/08/2020 Assessment & Plan (05/08/2020 4:47 PM TROLLEY WIRE INSTALLER): Appears to be folliculitis. Probably secondary to shaving. Rx keflex sent to pharmacy. Stop shaving. If sxs increase she is to followup sooner. Positive depression screening 05/08/2020 Assessment & Plan (05/08/2020 4:53 PM TROLLEY WIRE INSTALLER): Encouraged to make and keep appointment with counselor. Have provided names multiple times. She is planning on going to [employer]. Screening examination for ST D (sexually transmitted disease) 05/08/2020 Need for immunization against influenza 03/01/20 20 Assessment & Plan (03/01/2020 11:27 AM TROLLEY WIRE INSTALLER): Updated in office today Cough 02/02/2020 Assessment [...] 11/10/2019 Assessment & Plan (05/08/2020 4:47 PM TROLLEY WIRE INSTALLER): DepoProvera due May 17. ; Assessment & Plan (03/01/2020 11:26 AM TROLLEY WIRE INSTALLER): DepoProvera given today from office supply Due [...] 11:10 PM CDT): Continue to follow with [facility] psychiatrist and counseling Assessment & Plan (05/08/2020 4:54 PM TROLLEY WIRE INSTALLER): Probable bipolar diagnosis. Has tried multiple meds but doesn't consistently stay on them. Encouraging appt with psychiatry. Plans to call [place] and has contact information. Assessment & Plan (03/01/2020 11:29 AM TROLLEY WIRE INSTALLER): Strongly encouraged patient to follow-up with the psychiatrist. Encouraged her to call [facility] notice it is possible to make [...] test. Assessment & Plan (05/15/2019 11:02 PM TROLLEY WIRE INSTALLER): Will monitor after removing Nexplanon--- Will start NuvaRing. Resolved Problems Problem Noted Date Diagnosed Date Resolved Date BMI less than 19,adult 05/06/202007/28 Assessment & Plan (05/06/2020 10:45 AM TROLLEY WIRE INSTALLER): Weight/BMI is in healthy range. Continue healthy [...] 06/28/201905/06 Assessment & Plan (03/01/2020 11:22 AM TROLLEY WIRE INSTALLER): Weight/BMI is in healthy range. Continue healthy [...] 020 Assessment & Plan (05/15/2019 11:02 PM TROLLEY WIRE INSTALLER): Encouraged healthy lifestyle, good nutrition and exercise. Encouraged Calcium and Vitamin D and weight bearing exercise for bone health. Reviewed immunizations Reviewed age appropirate screenings. Declines STD screening Other fatigue 05/15/2019 10/02/2019 Assessment & Plan (05/15/2019 11:04 PM TROLLEY WIRE INSTALLER): Probably multifactorial. Check labs and followup to re-evaluate BMI less than 19,adult 05/15/201911/08 Assessment & Plan (06/27/2019 11:46 AM CDT): BMI Follow-up includes: Discussed diet and exercising counseling. Assessment & Plan (05/15/2019 11:03 PM TROLLEY WIRE INSTALLER): Weight/BMI is in healthy range. Continue healthy lifestyle to maintain. control counseling 05/15/201905/2019 Assessment & Plan (05/15/2019 11:03 PM TROLLEY WIRE INSTALLER): Reviewed with patient the control options including [...] 10/02/2019 Assessment & Plan (05/15/2019 11:04 PM TROLLEY WIRE INSTALLER): Pt declines Assessment & Plan (01/12/2019 4:32 PM CDT): Check STDs. No known exposure. Encouraged condoms/safe sexual practice. Dysuria 01/12/2019 10/02/2019 Assessment & Plan (01/12/2019 4:32 PM CDT): Send urine for culture. Empirically treat with macrobid. Nexplanon in place 01/01/2019 0 Overview (01/01/2019): 05/2016 placed at [facility]. Assessment & Plan (12/13/2019 3:14 PM CDT): Plan removal after been on DepoProvera for a month. Assessment & Plan (10/02/2019 10:09 PM CDT): Will schedule removal at next visit. Assessment & Plan (05/15/2019 11:03 PM TROLLEY WIRE INSTALLER): Plan removal in June Immunizations Immunization Administration [...] on file Legal Sex Female 9:14 AM TROLLEY WIRE INSTALLER Gender Identity Not on file Sexual Orientation Not on file Occupation Industry Job Start Date Job End Date unemployed Not on file Not on file Not on file Obstetrics History Last Filed Vital Signs Vital Sign Reading Time Taken Comments Blood Pressure 101/60 05/09/2024 3:30 AM TROLLEY WIRE INSTALLER Pulse 93 05/09/2024 3:45 AM TROLLEY WIRE INSTALLER Temperature 36.3 C (97.3 F) 05/08/2024 11:19 PM TROLLEY WIRE INSTALLER Respiratory Rate 18 05/09/2024 2:44 AM TROLLEY WIRE INSTALLER Oxygen Saturation 98% 05/09/2024 3:45 AM TROLLEY WIRE INSTALLER Inhaled Oxygen Concentration - - Weight 58.2 [...] a test for HCV RNA (test code 97248) is suggested. For additional information please refer to http://education.OptiSynx/faq/SCC21r9 (This link is being provided for informational/ educational purposes only.) Blood specimen (specimen) 01/08/2019 2:01 PM CDT 01/08/2019 2:01 PM CDT Narrative [facility] - 01/09/2019 7:17 PM CDT FASTING:NO FASTING: NO Resulting Agency Comment Performing Organization Information: Site ID: [id number] Name: [facility] Address: [address] [address] Director: Nolan Lacy D.O., MPH Jaci CAMACHO LAB MICROBIOLOGY - GENERAL ORDERABLES Final Result [facility] - [place] Rob[place]o from Last 3 Months or Most Recently Relevant to Health Maintenance Insurance [facility] PLAN DOUG MIRELES [facility] Care Teams Director Of Healthcare Systems Relationship Specialty Start Date End Date No, Physician PCP - General Neurology 10/13/22 Jaci Chaudhari PA [address] [place] [address] Internal Medicine 10/13/22
--- OUTSIDE RECORDS SUMMARY | 2024-09-06 07:25 | XMS_ITS ---
[facility] Address [address] [place] [address] Care Team Providers Care Gear Hobber Operator Name Role Phone Leesa Ball Primary Care Provider Jaylen Gamboa Unavailable [phone] REASON FOR VISIT mat new, gateway foundation, Methamphetamines, xanax, BZOs, Last use 05/07/2024, wants to discuss options Encounters Encounter Location Date Provider Diagnosis [address] [address] 06/06/2024 Jaylen Gamboa Plan Of Treatment No Information Progress Notes * MARY KAYBRIAN IngramDOB:2000 ( 24 yo F)Acc No.[id number]:06/06/2024 UNLOCKED PROGRESS NOTE Patient: BRIAN MG Provider: Milton Gamboa, MSN, AGPCNP-BC :2000 A ge:24 Y S ex:Female Date:06/06/2024 Phone: [id number] Pcp:Leesa Ball Subjective: * Chief Complaints: * 1 . mat new, gateway foundation, Methamphetamines, xanax, BZOs, Last use 05/07/2024, wants to discuss options. * Medical History: Objective: * Vitals: Assessment: Plan: * Treatment: * * Electronic signature of Chester Gamboa , HOME HEALTH NURSE, [phone] on 09/06/2024 at 07:24 AM CDT Sign off status: Pending * Provider: Milton Gamboa, MSN, AGPCNP-BC Date: 0 06/06/2024 Generated for Printing/Faxing/eTransmitting on: 0 09/06/2024 07:24 AM CDT
--- OUTSIDE RECORDS SUMMARY | 2024-09-06 07:25 | XMS_ITS | Clinical Summary ---
Author Organization [facility] [employer] Address [address] [place] [address] Care Team Providers Care Bookseamer Blindstitch Name Role Phone Unavailable Primary Care Provider Unavailabl e Source Comments [facility],non-owned Affiliates and Associated Physician Practices is amultiple site organization consisting of ambulatory clinics and hospital sitesin [place], [place], [place] and [place]. This disclosure is being madepursuant to the Care Everywhere program and may not contain all information available regarding this patient. Last updated 18.[facility] [employer] Allergies Active Allergy Reactions Criticality Noted Date Comments Sulfa Drugs Anaphylaxis High 08/15/2023 Medications * Be aware that medications may not be up to date on this document. Alwaysverify current medications with the patient. 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
--- OUTSIDE RECORDS SUMMARY | 2024-09-06 07:25 | XMS_ITS | Clinical Summary ---
Author Organization [facility] Address [address] [place] [address] Phone Care Team Providers Care Sign Wirer Name Role Phone Liam Chaudhariwna Nataly PAC Primary Care Provider [phone] Allergies Active Allergy Reactions Criticality Noted Date [...] measures to stabilize the patient. Care Teams Sign Wirer Relationship Specialty Start Date End Date Jaci Chaudhari, MAGDALENA PCP - General Physician Carpenter Assistant Installer 12/17/21
--- OUTSIDE RECORDS SUMMARY | 2024-09-06 07:25 | XMS_ITS | Patient Health Record ---
Author Organization [facility] Address [address] [place] [address] Care Team Providers Care Flight Technician Name Role Phone Casie Ballcarmen Primary Care Provider [phone] Jaylen Gamboa Unavailable [phone] Allergies Allergen (clinical drug ingredient) Drug/Non Drug Allergy documented on EMR Reaction Allergy Type Onset Date Status Substance with sulfonamide structure and antibacterial mechanism of action (substance) sulfa (uncoded) Unknown Allergy Active Reason For Referral No Information Social History Tobacco Use: Social History Observation Description Date Details (start date - stop date) Never Smoker NA - NA Dont use, Tobacco Use/Smoking Question Answer Notes Are you a nonsmoker Plan Of Treatment No Information Insurance Providers Payer Name Payer Address Payer Phone Subscriber Number Group Number Insured Name Patient Relationship to Insured Coverage Start Date Coverage End Date [address] [address] [id number] BRIAN CHARLES Self - patient is the insured 5 MEDICAID [address] [facility] [place] [address] [id number] BRIAN CHARLES Self - patient is the insured 2 Medical (General) History Medical History History ICD Code methamphetamine use disorder Surgical History Surgery Date(Month/Year) Hospitalization History Reason Date(Month/Year)
--- OUTSIDE RECORDS SUMMARY | 2024-09-06 07:25 | XMS_ITS | Referral Summary ---
Author Organization [facility] Address [address] [place] [address] Care Team Providers Care Tooth Cutter Name Role Phone No, Physician Primary Care Provider [phone] Jaci Chaudhari Unavailable [phone] Allergies Active Allergy Reactions Criticality Noted Date [...] She states she prefers to get it [id number]. Also discussed a marijuana exposure as well [...] 05/08/2020 Assessment & Plan (05/08/2020 4:47 PM CATALYST RECOVERY OPERATOR): Appears to be folliculitis. Probably secondary to shaving. Rx keflex sent to pharmacy. Stop shaving. If sxs increase she is to followup sooner. Positive depression screening 05/08/2020 Assessment & Plan (05/08/2020 4:53 PM CATALYST RECOVERY OPERATOR): Encouraged to make and keep appointment with counselor. Have provided names multiple times. She is planning on going to [place]. Screening examination for ST D (sexually transmitted disease) 05/08/2020 Need for immunization against influenza 03/01/20 20 Assessment & Plan (03/01/2020 11:27 AM CATALYST RECOVERY OPERATOR): Updated in office today Cough 02/02/2020 Assessment [...] 11/10/2019 Assessment & Plan (05/08/2020 4:47 PM CATALYST RECOVERY OPERATOR): DepoProvera due May 17. ; Assessment & Plan (03/01/2020 11:26 AM CATALYST RECOVERY OPERATOR): DepoProvera given today from office supply Due [...] 11:10 PM CDT): Continue to follow with [facility] psychiatrist and counseling Assessment & Plan (05/08/2020 4:54 PM CATALYST RECOVERY OPERATOR): Probable bipolar diagnosis. Has tried multiple meds but doesn't consistently stay on them. Encouraging appt with psychiatry. Plans to call [facility] and has contact information. Assessment & Plan (03/01/2020 11:29 AM CATALYST RECOVERY OPERATOR): Strongly encouraged patient to follow-up with the psychiatrist. Encouraged her to call [facility] notice it is possible to make [...] test. Assessment & Plan (05/15/2019 11:02 PM CATALYST RECOVERY OPERATOR): Will monitor after removing Nexplanon--- Will start NuvaRing. Resolved Problems Problem Noted Date Diagnosed Date Resolved Date BMI less than 19,adult 05/06/202007/28 Assessment & Plan (05/06/2020 10:45 AM CATALYST RECOVERY OPERATOR): Weight/BMI is in healthy range. Continue healthy [...] 06/28/201905/06 Assessment & Plan (03/01/2020 11:22 AM CATALYST RECOVERY OPERATOR): Weight/BMI is in healthy range. Continue healthy [...] 020 Assessment & Plan (05/15/2019 11:02 PM CATALYST RECOVERY OPERATOR): Encouraged healthy lifestyle, good nutrition and exercise. Encouraged Calcium and Vitamin D and weight bearing exercise for bone health. Reviewed immunizations Reviewed age appropirate screenings. Declines STD screening Other fatigue 05/15/2019 10/02/2019 Assessment & Plan (05/15/2019 11:04 PM CATALYST RECOVERY OPERATOR): Probably multifactorial. Check labs and followup to re-evaluate BMI less than 19,adult 05/15/201911/08 Assessment & Plan (06/27/2019 11:46 AM CDT): BMI Follow-up includes: Discussed diet and exercising counseling. Assessment & Plan (05/15/2019 11:03 PM CATALYST RECOVERY OPERATOR): Weight/BMI is in healthy range. Continue healthy lifestyle to maintain. control counseling 05/15/201905/2019 Assessment & Plan (05/15/2019 11:03 PM CATALYST RECOVERY OPERATOR): Reviewed with patient the control options including [...] 10/02/2019 Assessment & Plan (05/15/2019 11:04 PM CATALYST RECOVERY OPERATOR): Pt declines Assessment & Plan (01/12/2019 4:32 PM CDT): Check STDs. No known exposure. Encouraged condoms/safe sexual practice. Dysuria 01/12/2019 10/02/2019 Assessment & Plan (01/12/2019 4:32 PM CDT): Send urine for culture. Empirically treat with macrobid. Nexplanon in place 01/01/2019 0 Overview (01/01/2019): 05/2016 placed at [facility]. Assessment & Plan (12/13/2019 3:14 PM CDT): Plan removal after been on DepoProvera for a month. Assessment & Plan (10/02/2019 10:09 PM CDT): Will schedule removal at next visit. Assessment & Plan (05/15/2019 11:03 PM CATALYST RECOVERY OPERATOR): Plan removal in June Immunizations Immunization Administration [...] on file Legal Sex Female 9:14 AM CATALYST RECOVERY OPERATOR Gender Identity Not on file Sexual Orientation Not on file Occupation Industry Job Start Date Job End Date unemployed Not on file Not on file Not on file Last Filed Vital Signs Vital Sign Reading Time Taken Comments Blood Pressure 101/60 05/09/2024 3:30 AM CATALYST RECOVERY OPERATOR Pulse 93 05/09/2024 3:45 AM CATALYST RECOVERY OPERATOR Temperature 36.3 C (97.3 F) 05/08/2024 11:19 PM CATALYST RECOVERY OPERATOR Respiratory Rate 18 05/09/2024 2:44 AM CATALYST RECOVERY OPERATOR Oxygen Saturation 98% 05/09/2024 3:45 AM CATALYST RECOVERY OPERATOR Inhaled Oxygen Concentration - - Weight 58.2 [...] a test for HCV RNA (test code 19762) is suggested. For additional information please refer to http://education.TrademarkNow/faq/XWV93b9 (This link is being provided for informational/ educational purposes only.) Blood specimen (specimen) 01/08/2019 2:01 PM CDT 01/08/2019 2:01 PM CDT Narrative [facility] - 01/09/2019 7:17 PM CDT FASTING:NO FASTING: NO Resulting Agency Comment Performing Organization Information: Site ID: [id number] Name: [facility] Address: [address] [place] [address] [place] [address] Director: Nolan Lacy D.O., MPH Jaci CAMACHO LAB MICROBIOLOGY - GENERAL ORDERABLES Final Result [facility] [place] from Last 3 Months or Most Recently Relevant to Health Maintenance Insurance [facility] [place] [address] [facility] Care Teams Tooth Cutter Relationship Specialty Start Date End Date No, Physician PCP - General Neurology 10/13/22 Jaci Chaudhari PA [address] [facility] [address] [place] [address] Internal Medicine 10/13/22
[2024-09-06] MEDS: CEPHALEXIN 500 MG CAPSULE PO (07:46)
== END 2024-09-06 07:51 | disposition home or self-care (01) ==
LOC: ANHED 07:23
PROVIDERS: Emergency Provider Emergency Medicine
DX: O9A.211 Injury, poisoning and certain other consequences of external causes complicating pregnancy, first trimester (principal); S50.861A Insect bite (nonvenomous) of right forearm, initial encounter; W57.XXXA Bitten or stung by nonvenomous insect and other nonvenomous arthropods, initial encounter; Z3A.12 12 weeks gestation of pregnancy
CPT/HCPCS: 99283; A9270

== ENCOUNTER 2024-10-18 17:24 | Emergency (ER) | payer OTHER, BC, SELFPAY ==
--- OUTSIDE RECORDS SUMMARY | 2024-10-18 17:25 | XMS_ITS | Patient Health Record ---
Author Organization [facility] Address [address] [place] [address] Care Team Providers Care Assembler Skylights Name Role Phone Casie Ballcarmen Primary Care Provider Jaylen Gamboa Unavailable [phone] Allergies Allergen (clinical drug ingredient) Drug/Non Drug [...] Insured Coverage Start Date Coverage End Date [address] [address] [id number] BRIAN CHARLES Self - patient is the insured 5 MEDICAID [address] [facility] [place] [address] [id number] BRIAN CHARLES Self - patient is the insured 2 Medical (General) History Medical History History ICD Code methamphetamine use disorder Surgical History Surgery Date(Month/Year) Hospitalization History Reason Date(Month/Year)
--- OUTSIDE RECORDS SUMMARY | 2024-10-18 17:25 | XMS_ITS ---
Author Organization [facility] Address [address] [place] [address] Care Team Providers Care Truckman Name Role Phone Leesa Ball Primary Care Provider Jaylen Gamboa Unavailable [phone] REASON FOR VISIT mat new, [employer], Methamphetamines, xanax, BZOs, Last use 05/07/2024, wants to discuss options Encounters Encounter Location Date Provider Diagnosis [address] [address] 06/06/2024 Jaylen Gamboa Plan Of Treatment No Information Progress Notes * BRIAN CHARLESDOB:2000 ( 24 yo F)Acc No.[id number]:06/06/2024 UNLOCKED PROGRESS NOTE Patient: BRIAN MG Provider: Milton Gamboa, MSN, AGPCNP-BC :2000 A ge:24 Y S ex:Female Date:06/06/2024 Phone: [facility] Pcp:Leesa Ball Subjective: * Chief Complaints: * 1 . mat new, [employer], Methamphetamines, xanax, BZOs, Last use 05/07/2024, wants to discuss options. * Medical History: Objective: * Vitals: Assessment: Plan: * Treatment: * * Electronic signature of Chester Gamboa , CAT OPERATOR, [phone] on 10/18/2024 at 05:25 PM CDT Sign off status: Pending * Provider: Milton Gamboa, CANDELARIO, AGPCNP-BC Date: 0 06/06/2024 Generated for Printing/Faxing/eTransmitting on: 0 10/18/2024 05:25 PM CDT
--- OUTSIDE RECORDS SUMMARY | 2024-10-18 17:25 | XMS_ITS | Clinical Summary ---
Author Organization [facility] Address [address] [place] [address] Phone Care Team Providers Care Timber Framer Name Role Phone Charis Lucas Primary Care Provider [phone] Allergies Active Allergy Reactions Criticality Noted Date Comments Sulfa Antibiotics Swelling 12/14/2021 Medications busPIRone (BUSPAR) 15 MG Tablet Take 15 mg by mouth daily. 11/13/2019 Active acetaminophen (TYLENOL) 325 MG Tablet Take 3 Tablets by mouth every 6 hours as needed for Mild or more severe pain. 09/10/2024 Active buPROPion (WELLBUTRIN) 150 MG XL tablet Take 150 mg by mouth daily. 06/08/2024 Active cephALEXin (KEFLEX) 500 MG Capsule take 1 capsule by mouth every 12 hours for 7 days 09/06/2024 Active gabapentin (NEURONTIN) 300 MG Capsule 05/22/2024 Active gabapentin (NEURONTIN) 400 MG Capsule Take 400 mg by mouth 3 times daily. 06/09/2024 Active modafinil (PROVIGIL) 100 MG Tablet 05/22/2024 Active nicotine (NICODERM CQ) 14 MG/24HR PATCH 24 HR 05/22/2024 Active nicotine polacrilex (COMMIT) 4 MG Lozenge 05/22/2024 Active nitrofurantoin, monohydrate-mac rocrystal, (MACROBID) 100 MG Capsule take 1 capsule by mouth every 12 hours 06/15/2024 Active phenazopyridine (PYRIDIUM) 200 MG Tablet take 1 tablet by mouth three times daily for 2 days 06/15/2024 Active sulfacetamide (BLEPH-10) 10 % Solution Place 1-2 Drops in affected eye(s). 02/10/2022 Active Active Problems Problem Noted Date Diagnosed Date Cellulitis of right upper extremity 09/08/2024 Acute pyelonephritis 12/15/2021 Marijuana abuse 12/15/2021 Methamphetamine abuse 12/15/2021 Overview (12/15/2021): iv Comments Yes Encounters Date Type Department Care Team Description 09/15/2024 3:00 PM CDT Office Visit [facility] [address] [place] [address] Ene Mcclure, TELEVISION INSPECTOR, DRIVER MESSENGER ERRONEOUS ENCOUNTER--DISREGAR D (Primary Dx) Discharge Disposition: Discharged to home or Selfcare 09/14/2024 Travel 09/08/2024 9:28 AM CDT - 09/10/2024 2:18 PM CDT [facility] [address] [place] [id number] Trinh Santana PAC Carmicheal, Constance Chambers MD Cellulitis of right upper extremity Discharge Disposition: Discharged to home or Selfcare 09/08/2024 Travel from Last 3 Months Family History Medical History Relation Name Comments Cancer Maternal Grandmother Mehran ventura Lung Hypertension Mother Karena Relation Name Status Comments Maternal Grandmother Mehran ventura Alive Mother Karena Alive Social History Tobacco Use Types Packs/Day Years Used Date Smoking Tobacco: Never Smokeless Tobacco: Never Tobacco Cessation:Counseling Given: No Comments:Vaping Alcohol Use Standard Drinks/Week Comments Not Currently 0 (1 standard drink = 0.6 oz pur e alcohol) [facility] Utilities Answer Date Recorded In the past 12 months has [employer], gas, oil, or water [employer] threatened to shut off services in your home? Patient declined 09/08/2024 Social Connection and Isolation Panel Answer Date Recorded In a typical week, how many times do you talk on the phone with family, friends, or neighbors? Patient declined 09/08/2024 How often do you get togethe r with friends or relatives? Patient declined 09/08/2024 How often do you attend denominational or advent serv ices? Patient declined 09/08/2024 Do you belong to any clubs o r organizations such as denominational groups, unions, fraternal or athletic groups, or school groups? Patient declined 09/08/2024 How often do you attend meet ings of the clubs or organizations you belong to? Patient declined 09/08/2024 Are you , , di vorced, , never , or living with a partner? Patient declined 09/08/2024 AUDIT-C Answer Date Recorded Q1: How often do you have a drink containing alc ohol? Patient declined 09/08/2024 Q2: How many drinks containi ng alcohol do you have on a typical day when you are drinking? Patient declined 09/08/2024 Q3: How often do you have si x or more drinks on one occasion? Patient declined 09/08/2024 Overall Financial Resource Strain (CARDIA) Answe r Date Recorded How hard is it for you to pa y for the very basics like food, housing, medical care, and heating? Patient declined 09/08/2024 [facility] ional [facility] - Occupational Stress Questionnaire Answer Date Recorded Do you feel stress - tense, restless, nervous, or anxious, or unable to sleep at night because your mind is troubled all the time - these days? Patient declined 09/08/2024 Exercise Vital Sign Answer Date Recorde d On average, how many days pe r week do you engage in moderate to strenuous exercise (like a brisk walk)? Patient declined On average, how many minutes do you engage in exercise at this level? Patient declined 09/08/2024 Hunger Vital Sign Answer Date Recorded Within the past 12 months, y ou worried that your food would run out before you got the money to buy more. Patient declined Within the past 12 months, t he food you bought just didn't last and you didn't have money to get more. Patient declined PRAPARE - Transportation Answer Date Re corded In the past 12 months, has l ack of transportation kept you from medical appointments or from getting medications? Patient declined 09/08/2024 In the past 12 months, has l ack of transportation kept you from meetings, work, or from getting things needed for daily living? Patient declined 09/08/2024 Housing Stability Vital Sign Answer Mike e Recorded In the last 12 months, was t here a time when you were not able to pay the mortgage or rent on time? Patient declined 09/09/19 25 In the past 12 months, how m any times have you moved where you were living? 1 09/08/2024 At any time in the past 12 m [facility], were you homeless or living in a usp (including now)? Patient declined 09/08/2024 Sexually Active Control Partners Comments Yes None Male Comments Yes Sex and Gender Information Value Date Recorded Sex Assigned at Not on file Legal Sex Female 11:42 PM CDT Gender Identity Not on file Sexual Orientation Not on file Last Filed Vital Signs Vital Sign [place] Time Taken Comments Blood Pressure 100/60 09/15/2024 3:25 PM CDT Pulse 76 09/15/2024 3:25 PM CDT Temperature 36.3 C (97.4 F) 09/15/2024 3:25 PM CDT Respiratory Rate 18 09/15/2024 3:25 PM CDT Oxygen Saturation 99% 09/15/2024 3:25 PM CDT Inhaled Oxygen Concentration - - Weight 62.4 kg (137 lb 8 oz) 09/15/2024 3:25 PM CDT Height 170.2 cm (5' 7) 09/15/2024 3:25 PM CDT Body Mass Index 21.54 09/15/2024 3:25 PM CDT Plan of Treatment Health Maintenance Due Date Last Done Comments Hepatitis C Virus (HCV) Screening 2000 TdaP Immunization 2000 Hepatitis B Immunization (3 of 3 - 3-dose series) 2000 2000, 2000 Human Papillomavirus (HPV) Immunization (2 - 3-dose series) 06/11/2018 05/14/2018 Pap Smear 2021 SARS-COV-2 Immunization (3 - season) 2023 09/30/2020, 09/02/2020 Influenza Immunization (Season Ended) 2024 03/01/2020 Respiratory Syncytial Virus (RSV) Immunization (Adult) (1 [...] Procedure Name Priority Date/Time Associated Diagnosis Comments CBC WITH AUTO DIFFERENTIAL Routine 09/10/2024 6:38 AM CDT COMPLETE BLOOD COUNT (CBC) WITH DIFF Routine 09/10/2024 6:38 AM CDT BASIC METABOLIC PANEL W/ CALCIUM TOTAL Routine 09/10/2024 6:38 AM CDT CBC WITH AUTO DIFFERENTIAL Routine 09/09/2024 6:56 AM CDT COMPLETE BLOOD COUNT (CBC) WITH DIFF Routine 09/09/2024 6:56 AM CDT BASIC METABOLIC PANEL W/ CALCIUM TOTAL Routine 09/09/2024 6:56 AM CDT URINE DRUG SCREEN STAT 09/08/2024 11: 03 AM CDT URINALYSIS REFLEX IF INDICATED BY ABNORMAL RESULTS STAT 09/08/2024 11:03 AM CDT CULTURE, URINE STAT 09/08/2024 11:03 AM CDT CULTURE, BLOOD STAT 09/08/2024 10:53 AM CDT CBC WITH AUTO DIFFERENTIAL STAT 09/08/2024 10:35 AM CDT HCG BETA SUBUNIT SERUM QUANT STAT 09/08/2024 10:35 AM CDT ERYTHROCYTE SEDIMENTATION RATE (ESR) STAT 09/08/2024 10:35 AM CDT C-REACTIVE PROTEIN (CRP) QUANT STAT 09/08/2024 10:35 AM CDT LACTIC ACID (LACTATE) STAT 09/08/2024 10:35 AM CDT COMPLETE BLOOD COUNT (CBC) WITH DIFF STAT 09/08/2024 10:35 AM CDT CMP (COMPREHENSIVE METABOLIC PANEL) STAT 09/08/2024 10:35 AM CDT CULTURE, BLOOD STAT 09/08/2024 10:35 AM CDT from Last 3 Months Results * (ABNORMAL) CBC with Auto Differential (09/10/2024 6:38 AM CDT) Only the most recent of3 resultswithin the time period is included. WBC 7.71 4.00 - 12.00 10(3)/mcL 09/10/2024 6:41 AM CDT [facility] RBC 4.25 3.80 - 5.30 10(6)/mcL 09/10/2024 6:41 AM CDT [facility] HEMOGLOBIN (HGB) 12.8 12.0 - 15.8 g/dL 09/10/2024 6:41 AM CDT [facility] HEMATOCRIT (HCT) 37.5 36.0 - 47.0 % 09/10/2024 6:41 AM CDT [facility] MCV 88.2 82.0 - 96.0 fL 09/10/2024 6:41 AM CDT [facility] MCH 30.1 26.0 - 34.0 pg 09/10/2024 6:41 AM CDT [facility] MCHC 34.1 31.0 - 36.0 g/dL 09/10/2024 6:41 AM CDT [facility] PLATELET COUNT 246 140 - 440 10(3)/mcL 09/10/2024 6:41 AM CDT [facility] RDW 13.0 11.8 - 15.5 % 09/10/2024 6:41 AM CDT [facility] MPV 8.3(L) 9.7 - 12.4 fL 09/10/2024 6:41 AM CDT [facility] NEUTROPHILS 58.7 47.0 - 73.0 % 09/10/2024 6:41 AM CDT [facility] LYMPHOCYTES 20.9 18.0 - 42.0 % 09/10/2024 6:41 AM CDT [facility] MONOCYTES 5.4 4.0 - 12.0 % 09/10/2024 6:41 AM CDT [facility] EOSINOPHILS 14.7(H) 0.0 - 5.0 % 09/10/2024 6:41 AM CDT [facility] BASOPHILS 0.3 0.0 - 1.0 % 09/10/2024 6:41 AM CDT [facility] ABSOLUTE NEUTROPHILS 4.53 1.60 - 7.70 10(3)/[facility] 09/10/2024 6:41 AM CDT [facility] ABSOLUTE LYMPHOCYTES 1.61 1.30 - 3.20 10(3)/[facility] 09/10/2024 6:41 AM CDT [facility] ABSOLUTE MONOCYTES 0.42 0.20 - 1.00 10(3)/[facility] 09/10/2024 6:41 AM CDT [facility] ABSOLUTE EOSINOPHIL 1.13(H) 0.00 - 0.40 10(3)/[facility] 09/10/2024 6:41 AM CDT [facility] ABSOLUTE BASOPHILS 0.02 0.00 - 0.10 10(3)/[facility] 09/10/2024 6:41 AM CDT [facility] NRBC PER 100 WBC 0 09/11/19 6:41 AM CDT [facility] Blood Venipuncture / Unknown 09/10/2024 6:38 AM CDT 09/10/2024 6:38 AM CDT us Constance De Guzman MD HEMATOLOGY ORDERABLE S Final Result [facility] [address] [place] [address] * (ABNORMAL) BMP with Ca, Total (09/10/2024 6:38 AM CDT) Only the most recent of2 resultswithin the time period is included. SODIUM 138 136 - 145 mmol/L 09/10/2024 7:18 AM CDT [facility] POTASSIUM 3.6 3.5 - 5.1 mmol/L 09/10/2024 7:18 AM CDT [facility] CHLORIDE 108(H) 98 - 107 mmol/L 09/10/2024 7:18 AM CDT [facility] CO2, VENOUS 21(L) 22 - 30 mmol/L 09/10/2024 7:18 AM CDT [facility] ANION GAP 12.6 <18.0 mmol/L 09/10/2024 7:18 AM CDT [facility] GLUCOSE 78 70 - 99 mg/dL 09/10/2024 7:18 AM CDT [facility] BUN 6 5 - 18 mg/dL 09/10/2024 7:18 AM CDT [facility] CREATININE, BLOOD 0.50(L) 0.60 - 1.00 mg/dL 09/10/2024 7:18 AM CDT [facility] BUN/CREATININE RATIO 12 12 - 20 ratio 09/10/2024 7:18 AM CDT [facility] CALCIUM 8.7 8.7 - 10.5 mg/dL 09/10/2024 7:18 AM CDT [facility] GFR, ESTIMATED >60 >=60 09/10/2024 7:18 AM CDT [facility] Comment: Creatinine Clearance is the preferred criteria for selecting drug dose adjustments in renally impaired patients. The GFR is provided as additional pertinent clinical information. GFR is reported in mL/min/1.73 sq m. Calculation based on the Chronic Kidney Disease Epidemiology Collaboration (CKD- EPI) equation refit without adjustment for race. GFR, EST. >60 >=60 09/10/ 025 7:18 AM CDT [facility] GFR, EST. NONAFRICAN >60 >=60 09/10/2024 7:18 AM CDT [facility] Blood Venipuncture / Unknown 09/10/2024 6:38 AM CDT 09/10/2024 6:38 AM CDT us Constance De Guzman MD CHEMISTRY ORDERABLES Final Result [facility] [address] [place] [address] * (ABNORMAL) URINALYSIS REFLEX IF INDICATED BY ABNORMAL RESULTS (09/08/2024 11:03 AM CDT) SPECIFIC GRAVITY 1.005 1.003 - 1.030 09/08/2024 12:09 PM CDT [facility] URINE PH 7.0 5.0 - 9.0 09/08/2024 12:09 PM CDT [facility] WBC ESTERASE 500 /uL(A) Negative 09/08/2024 12:09 PM CDT [facility] NITRITE Negative Negative 09/08/2024 12:09 PM CDT [facility] PROTEIN, RANDOM URINE 15 mg/dL(A) Negative 09/08/2024 12:09 PM CDT [facility] URINE GLUCOSE, QUAL Negative Negative 09/08/2024 12:09 PM CDT [facility] URINE KETONES Negative Negative 09/08/2024 12:09 PM CDT [facility] UROBILINOGEN Normal Normal mg/dL 09/08/2024 12:09 PM CDT [facility] URINE BLOOD Negative Negative regina/ul 09/08/2024 12:09 PM CDT [facility] URINALYSIS COLOR Yellow 09/09/19 12:09 PM CDT [facility] URINALYSIS CLARITY Slightly Cloudy 09/08/2024 12:09 PM CDT [facility] WBC (Urine) 6-10(A) Negative, 0-5 /hpf 09/08/2024 12:09 PM CDT [facility] URINE RBC'S 0-2 Negative, 0-2 /hpf 09/08/2024 12:09 PM CDT [facility] EPITHELIAL CELLS Small amount /lpf 2024 12:09 PM CDT [facility] BACTERIA, URINE Few(A) Negative /hpf 09/08/2024 12:09 PM CDT [facility] Urine URINE SPECIMEN OBTAINED BY CLEAN CATCH PROCEDURE / Unknown Non-Phlebotomy Collection / Unknown 09/08/2024 11:03 AM CDT 09/08/2024 11:11 AM CDT Trinh Ott Page PAC URINE ORDERABLES Final Resul t [facility] [address] [place] [address] * Culture, Urine (09/08/2024 11:03 AM CDT) CULTURE RESULTS No growth final 09/09/2024 5:38 PM CDT [facility] Urine URINE SPECIMEN OBTAINED BY CLEAN CATCH PROCEDURE / Unknown Non-Phlebotomy Collection / Unknown 09/08/2024 11:03 AM CDT 09/08/2024 11:11 AM CDT Trinh Ott Page PAC MICROBIOLOGY - GENERAL ORDER MANJU Final Result [facility] [address] [place] [address], [place] * (ABNORMAL) Urine Drug Screen (09/08/2024 11:03 AM CDT) UR AMPHETAMINE NON DETECTED NON DETECTED 09/08/2024 11:51 AM CDT [facility] Comment: FOR MEDICAL USE ONLY. CUTOFF CONCENTRATION FOR DETECTED RESULT: AMPHETAMINE: 500 NG/ML UR BENZODIAZEPINES NON DETECTED NON DETECTED 09/08/2024 11:51 AM CDT [facility] Comment: FOR MEDICAL USE ONLY. CUTOFF CONCENTRATION FOR DETECTED RESULT: BENZODIAZAPINE: 200 NG/ML UR COCAINE METABOLITE NON DETECTED NON DETECTED 09/08/2024 11:51 AM CDT [facility] Comment: FOR MEDICAL USE ONLY. CUTOFF CONCENTRATION FOR DETECTED RESULT: COCAINE: 150 NG/ML UR OPIATES NON DETECTED NON DETECTED 09/08/2024 11:51 AM CDT [facility] Comment: FOR MEDICAL USE ONLY. CUTOFF CONCENTRATION FOR DETECTED RESULT: OPIATES: 300 NG/ML UR PHENCYCLIDINE NON DETECTED NON DETECTED 09/08/2024 11:51 AM CDT [facility] Comment: FOR MEDICAL USE ONLY. CUTOFF CONCENTRATION FOR DETECTED RESULT: PCP: 25 NG/ML UR CANNABINOID DETECTED(A) NON DETECTED 09/08/2024 11:51 AM CDT [facility] Comment: FOR MEDICAL USE ONLY. CUTOFF CONCENTRATION FOR DETECTED RESULT: THC (MARIJUANA): 50 NG/ML UR BARBITURATE NON DETECTED NON DETECTED 09/08/2024 11:51 AM CDT [facility] Comment: FOR MEDICAL USE ONLY. CUTOFF CONCENTRATION FOR DETECTED RESULT: BARBITUATES: 200 NG/ML UR FENTANYL NON DETECTED NON DETECTED 09/08/2024 11:51 AM CDT [facility] Comment: FOR MEDICAL USE ONLY. CUTOFF CONCENTRATION FOR DETECTED RESULT: FENTANYL: 1.0 NG/ML Urine Non-Phlebotomy Collection / Unknown 09/08/2024 11:03 AM CDT 09/08/2024 11:36 AM CDT us Trinh Ott Page PAC URINE ORDERABLES Final Resul t [facility] [address] [place] [address] * Culture, Blood [id number] (09/08/2024 10:53 AM CDT) Only the most recent of2 resultswithin the time period is included. [facility] CULTURE RESULTS NO GROWTH WITHIN 5 DAYS, FINAL RESULT 09/13/2024 12:00 PM CDT [facility] Culture (Peripheral Vein) Venipuncture / Unknown 09/08/2024 10:53 AM CDT 09/08/2024 11:11 AM CDT Trinh Ott Page PAC MICROBIOLOGY - GENERAL ORDER MANJU Final Result Performing Organization Address City/[facility]/ZIP Co de Phone Number [facility] [address] [place] [address], [place] * Sed Rate (Esr) [id number] (09/08/2024 10:35 AM CDT) ESR (SED RATE, ERYTHROCYTE SEDIMENTATION RATE) 15 <20 mm/h 09/08/2024 11:11 AM CDT [facility] Comment: Patients presenting with increased level of fibrinogen, gamma globulins, or abnormally shaped RBCs could affect the results for the erythrocyte sedimentation rate (ESR). Results should be clinically correlated. Blood Venipuncture / Unknown 09/08/2024 10:35 AM CDT 09/08/2024 10:45 AM CDT us Trinh Santana PAC HEMATOLOGY ORDERABLES Final Result Performing Organization Address [facility] Co de Phone Number [facility] [address] [place] [address] * Lactic Acid (Lactate) (09/08/2024 10:35 AM CDT) LACTIC ACID 1.3 0.7 - 2.0 mmol/L 09/08/2024 11:06 AM CDT [facility] Blood Venipuncture / Unknown 09/08/2024 10:35 AM CDT 09/08/2024 10:45 AM CDT Trinh Ott Page PAC CHEMISTRY ORDERABLES Final R esult [facility] [address] [place] [address] * (ABNORMAL) HCG Beta Subunit Serum Quant (09/08/2024 10:35 AM CDT) HCG BETA SUBUNIT, QUANT 73,360.14( H) 0.00 - 5.00 mIU/mL 09/08/2024 11:33 AM CDT [facility] Blood Venipuncture / Unknown 09/08/2024 10:35 AM CDT 09/08/2024 10:45 AM CDT Narrative [facility] - 09/08/2024 11:33 AM CDT HCG levels should be interpreted with consideration given to the patient's clinical condition. No currently available hCG test is approved by the FDA for use as a tumor marker. hCG results <5 mIU/mL are considered negative. Weeks post LMP hCG range (mIU/mL) 1 - 10 202 - 231,000 11 - 15 22,536 - 234,990 16 - 22 8,007 - 50,064 23 - 40 1,600 - 49,413 The concentration of hCG in maternal serum rises rapidly in early , hCG levels less than 25 mIU/mL do not exclude . A further sample should be tested after 48 hours if is suspected. Heterophilic antibodies present in the serum of some patients may cause a false positive result in the assay. Before making a diagnosis of malignancy based on elevated hCG, confirm results with a urine hCG. Trinh Ott Page PAC CHEMISTRY ORDERABLES Final R esult [facility] [address] [place] [address] * (ABNORMAL) CMP (Comprehensive Metabolic Panel) (09/08/2024 10:35 AM CDT) Pathologist [facility] SODIUM 138 136 - 145 mmol/L 09/08/2024 11:07 AM CDT [facility] POTASSIUM 3.7 3.5 - 5.1 mmol/L 09/08/2024 11:07 AM CDT [facility] CHLORIDE 106 98 - 107 mmol/L 09/08/2024 11:07 AM T [facility] CO2, VENOUS 24 22 - 30 mmol/L 09/08/2024 11:07 AM T [facility] ANION GAP 11.7 <18.0 mmol/L 09/08/2024 11:07 AM T [facility] GLUCOSE 75 70 - 99 mg/dL 09/08/2024 11:07 AM CDT [facility] BUN 7 5 - 18 mg/dL 09/08/2024 11:07 AM T [facility] CREATININE, BLOOD 0.53(L) 0.60 - 1.00 mg/dL 09/08/2024 11:07 AM T [facility] BUN/CREATININE RATIO 13 12 - 20 ratio 09/08/2024 11:[address] [facility] TOTAL PROTEIN 7.1 6.0 - 8.0 g/dL 09/08/2024 11:07 AM T [facility] ALBUMIN 3.9 3.5 - 5.0 g/dL 09/08/2024 11:[address] [facility] A/G RATIO 1.2 1.0 - 2.2 09/08/2024 11:[address] [facility] CALCIUM 8.5(L) 8.7 - 10.5 mg/dL 09/08/2024 11:07 AM T [facility] T BILI 0.1(L) 0.2 - 1.2 mg/dL 09/08/2024 11:07 AM T [facility] SGOT (AST) 24 <43 U/L 09/08/2024 11:07 AM T [facility] SGPT (ALT) 21 <56 U/L 09/08/2024 11:07 AM T [facility] ALKALINE PHOSPHATASE 51 40 - 150 U/L 09/08/2024 11:07 AM T [facility] GFR, ESTIMATED >60 >=60 09/08/2024 11:07 AM CDT [facility] Comment: Creatinine Clearance is the preferred criteria for selecting drug dose adjustments in renally impaired patients. The GFR is provided as additional pertinent clinical information. GFR is reported in mL/min/1.73 sq m. Calculation based on the Chronic Kidney Disease Epidemiology Collaboration (CKD- EPI) equation refit without adjustment for race. GFR, EST. >60 >=60 025 11:07 AM CDT [facility] GFR, EST. NONAFRICAN >60 >=60 09/08/2024 11:07 AM CDT [facility] Blood Venipuncture / Unknown 09/08/2024 10:35 AM CDT 09/08/2024 10:45 AM CDT Trinh Santana PAC CHEMISTRY ORDERABLES Final R esult Performing Organization Address City/[facility]/ZIP Co de Phone Number [facility] [address] [place] [address] * (ABNORMAL) C-Reactive Protein Qnt (Crp) (09/08/2024 10:35 AM CDT) C-REACTIVE PROTEIN 4.45(H) <0.50 mg/dL 09/08/2024 11:22 AM CDT [facility] Blood Venipuncture / Unknown 09/08/2024 10:35 AM CDT 09/08/2024 10:45 AM CDT Trinh Ott Page PAC CHEMISTRY ORDERABLES Final R esult Performing Organization Address City/[facility] Co de Phone Number [facility] [address] [place] [address] from Last 3 Months Insurance MEDICAID [place] [facility] Advance Directives * Full Code (Latest Code Status on File) Date Activated Date Inactivated Comments 09/08/2024 12:44 PM CPR-Full Lyla tment: FULL ARREST: Attempt Resuscitation/CPR wit intubation and mechanical ventilation. PRE-ARREST: Use entire range of life support measures to stabilize the patient. * Full Code Date Activated Date Inactivated Comments 09/08/2024 12:02 PM 09/08/2024 12:44 PM CPR-Full T reatment: FULL ARREST: Attempt Resuscitation/CPR wit intubation and mechanical ventilation. PRE-ARREST: Use entire range of life support measures to stabilize the patient. * Full Code Date Activated Date Inactivated Comments 12/15/2021 3:33 AM 12/17/2021 3:16 PM CPR-Full Treat ment: FULL ARREST: Attempt Resuscitation/CPR wit intubation and mechanical ventilation. PRE-ARREST: Use entire range of life support measures to stabilize the patient. Care Teams Timber Framer Relationship Specialty Start Date End Date Charis Lucas PA [address] [place] [address] PCP - General Family Medicine 09/08/24
[2024-10-18 17:29] VITALS: BP 128/77; PULSE 99; RESP 16; TEMP 36.6; O2SAT 99
--- OUTSIDE RECORDS SUMMARY | 2024-10-18 21:08 | XMS_ITS | Clinical Summary ---
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 Supervisor Name Role Phone Charis Lucas Primary Care Provider [phone] Allergies Active Allergy Reactions Criticality Noted Date [...] Visit [facility] [address] [place] [address] Ene Mcclure, RAT CULTURIST, PROPERTY CONSULTANT ERRONEOUS ENCOUNTER--DISREGAR D (Primary Dx) Discharge Disposition: Discharged to home or Selfcare 09/14/2024 Travel 09/08/2024 9:28 AM CDT - 09/10/2024 2:18 PM CDT [facility]urg [address] [place] [phone] Trinh Santana PAC Carmicheal, Constance Chambers MD [...] drink = 0.6 oz pur e alcohol) [facility] Utilities Answer Date Recorded In the past 12 months has [employer], gas, oil, or water [facility] threatened to shut off services in your home? Patient declined 09/08/2024 Social Connection and Isolation Panel Answer Date Recorded In a typical week, how many times do you talk on the phone with family, friends, or neighbors? Patient declined 09/08/2024 How often do you get togethe r with friends or relatives? Patient declined 09/08/2024 How often do you attend denominational or bahai serv ices? Patient declined 09/08/2024 Do you [...] medical care, and heating? Patient declined 09/08/2024 [facility] Occupat ional [facility] - Occupational Stress Questionnaire Answer Date Recorded [...] any time in the past 12 m [facility], were you homeless or living in a [facility] (including now)? Patient declined 09/08/2024 Sexually Active [...] - 12.00 10(3)/mcL 09/10/2024 6:41 AM CDT [facility] RBC 4.25 3.80 - 5.30 10(6)/mcL 09/10/2024 6:41 AM CDT [facility] HEMOGLOBIN (HGB) 12.8 12.0 - 15.8 g/dL 09/10/2024 6:41 AM CDT [facility] HEMATOCRIT (HCT) 37.5 36.0 - 47.0 % 09/10/2024 6:41 AM CDT [facility] MCV 88.2 82.0 - 96.0 fL 09/10/2024 6:41 AM CDT [facility] MCH 30.1 26.0 - 34.0 pg 09/10/2024 6:41 AM CDT [facility] MCHC 34.1 31.0 - 36.0 g/dL 09/10/2024 6:41 AM CDT [facility] PLATELET COUNT 246 140 - 440 10(3)/mcL 09/10/2024 6:41 AM CDT [facility] RDW 13.0 11.8 - 15.5 % 09/10/2024 6:41 AM CDT [facility] MPV 8.3(L) 9.7 - 12.4 fL 09/10/2024 6:41 AM CDT [facility] NEUTROPHILS 58.7 47.0 - 73.0 % 09/10/2024 6:41 AM CDT [facility] LYMPHOCYTES 20.9 18.0 - 42.0 % 09/10/2024 6:41 AM CDT [facility] MONOCYTES 5.4 4.0 - 12.0 % 09/10/2024 6:41 AM CDT [facility] EOSINOPHILS 14.7(H) 0.0 - 5.0 % 09/10/2024 6:41 AM CDT [facility] BASOPHILS 0.3 0.0 - 1.0 % 09/10/2024 6:41 AM CDT [facility] ABSOLUTE NEUTROPHILS 4.53 1.60 - 7.70 10(3)/[facility] 09/10/2024 6:41 AM CDT [facility] ABSOLUTE LYMPHOCYTES 1.61 1.30 - 3.20 10(3)/[facility] 09/10/2024 6:41 AM CDT [facility] ABSOLUTE MONOCYTES 0.42 0.20 - 1.00 10(3)/[facility] 09/10/2024 6:41 AM CDT [facility] ABSOLUTE EOSINOPHIL 1.13(H) 0.00 - 0.40 10(3)/[facility] 09/10/2024 6:41 AM CDT [facility] ABSOLUTE BASOPHILS 0.02 0.00 - 0.10 10(3)/[facility] 09/10/2024 6:41 AM CDT [facility] NRBC PER 100 WBC 0 09/11/19 6:41 AM CDT [facility] Blood Venipuncture / Unknown 09/10/2024 6:38 AM CDT 09/10/2024 6:38 AM CDT us Constance De Guzman MD HEMATOLOGY ORDERABLE S Final Result [facility] [address] [place] [address] * (ABNORMAL) BMP with Ca, Total (09/10/2024 6:38 AM CDT) Only the most recent of2 resultswithin the time period is included. SODIUM 138 136 - 145 mmol/L 09/10/2024 7:18 AM CDT [facility] POTASSIUM 3.6 3.5 - 5.1 mmol/L 09/10/2024 7:18 AM CDT [facility] CHLORIDE 108(H) 98 - 107 mmol/L 09/10/2024 7:18 AM CDT [facility] CO2, VENOUS 21(L) 22 - 30 mmol/L 09/10/2024 7:18 AM CDT [facility] ANION GAP 12.6 <18.0 mmol/L 09/10/2024 7:18 AM CDT [facility] GLUCOSE 78 70 - 99 mg/dL 09/10/2024 7:18 AM CDT [facility] BUN 6 5 - 18 mg/dL 09/10/2024 7:18 AM CDT [facility] CREATININE, BLOOD 0.50(L) 0.60 - 1.00 mg/dL 09/10/2024 7:18 AM CDT [facility] BUN/CREATININE RATIO 12 12 - 20 ratio 09/10/2024 7:18 AM CDT [facility] CALCIUM 8.7 8.7 - 10.5 mg/dL 09/10/2024 7:18 AM CDT [facility] GFR, ESTIMATED >60 >=60 09/10/2024 7:18 AM CDT [facility] Comment: Creatinine Clearance is the preferred criteria for selecting drug dose adjustments in renally impaired patients. The GFR is provided as additional pertinent clinical information. GFR is reported in mL/min/1.73 sq m. Calculation based on the Chronic Kidney Disease Epidemiology Collaboration (CKD- EPI) equation refit without adjustment for race. GFR, EST. >60 >=60 09/10/ 025 7:18 AM CDT [facility] GFR, EST. NONAFRICAN >60 >=60 09/10/2024 7:18 AM CDT [facility] Blood Venipuncture / Unknown 09/10/2024 6:38 AM CDT 09/10/2024 6:38 AM CDT us Constance De Guzman MD CHEMISTRY ORDERABLES Final Result [facility] [address] [place] [address] * (ABNORMAL) URINALYSIS REFLEX IF INDICATED BY ABNORMAL RESULTS (09/08/2024 11:03 AM CDT) SPECIFIC GRAVITY 1.005 1.003 - 1.030 09/08/2024 12:09 PM CDT [facility] URINE PH 7.0 5.0 - 9.0 09/08/2024 12:09 PM CDT [facility] WBC ESTERASE 500 /uL(A) Negative 09/08/2024 12:09 PM CDT [facility] NITRITE Negative Negative 09/08/2024 12:09 PM CDT [facility] PROTEIN, RANDOM URINE 15 mg/dL(A) Negative 09/08/2024 12:09 PM CDT [facility] URINE GLUCOSE, QUAL Negative Negative 09/08/2024 12:09 PM CDT [facility] URINE KETONES Negative Negative 09/08/2024 12:09 PM CDT [facility] UROBILINOGEN Normal Normal mg/dL 09/08/2024 12:09 PM CDT [facility] URINE BLOOD Negative Negative regina/ul 09/08/2024 12:09 PM CDT [facility] URINALYSIS COLOR Yellow 09/09/19 12:09 PM CDT [facility] URINALYSIS CLARITY Slightly Cloudy 09/08/2024 12:09 PM CDT [facility] WBC (Urine) 6-10(A) Negative, 0-5 /hpf 09/08/2024 12:09 PM CDT [facility] URINE RBC'S 0-2 Negative, 0-2 /hpf 09/08/2024 12:09 PM CDT [facility] EPITHELIAL CELLS Small amount /lpf 2024 12:09 PM CDT [facility] BACTERIA, URINE Few(A) Negative /hpf 09/08/2024 12:09 PM CDT [facility] Urine URINE SPECIMEN OBTAINED BY CLEAN CATCH PROCEDURE / Unknown Non-Phlebotomy Collection / Unknown 09/08/2024 11:03 AM CDT 09/08/2024 11:11 AM CDT Trinh Ott Page PAC URINE ORDERABLES Final Resul t [facility] [address] [place] [address] * Culture, Urine (09/08/2024 11:03 AM CDT) CULTURE RESULTS No growth final 09/09/2024 5:38 PM CDT [facility] Urine URINE SPECIMEN OBTAINED BY CLEAN CATCH PROCEDURE / Unknown Non-Phlebotomy Collection / Unknown 09/08/2024 11:03 AM CDT 09/08/2024 11:11 AM CDT Trinh Ott Page PAC MICROBIOLOGY - GENERAL ORDER MANJU Final Result [facility] [address] [place] [address], [place] * (ABNORMAL) Urine Drug Screen (09/08/2024 11:03 AM CDT) UR AMPHETAMINE NON DETECTED NON DETECTED 09/08/2024 11:51 AM CDT [facility] Comment: FOR MEDICAL USE ONLY. CUTOFF CONCENTRATION FOR DETECTED RESULT: AMPHETAMINE: 500 NG/ML UR BENZODIAZEPINES NON DETECTED NON DETECTED 09/08/2024 11:51 AM CDT [facility] Comment: FOR MEDICAL USE ONLY. CUTOFF CONCENTRATION FOR DETECTED RESULT: BENZODIAZAPINE: 200 NG/ML UR COCAINE METABOLITE NON DETECTED NON DETECTED 09/08/2024 11:51 AM CDT [facility] Comment: FOR MEDICAL USE ONLY. CUTOFF CONCENTRATION FOR DETECTED RESULT: COCAINE: 150 NG/ML UR OPIATES NON DETECTED NON DETECTED 09/08/2024 11:51 AM CDT [facility] Comment: FOR MEDICAL USE ONLY. CUTOFF CONCENTRATION FOR DETECTED RESULT: OPIATES: 300 NG/ML UR PHENCYCLIDINE NON DETECTED NON DETECTED 09/08/2024 11:51 AM CDT [facility] Comment: FOR MEDICAL USE ONLY. CUTOFF CONCENTRATION FOR DETECTED RESULT: PCP: 25 NG/ML UR CANNABINOID DETECTED(A) NON DETECTED 09/08/2024 11:51 AM CDT [facility] Comment: FOR MEDICAL USE ONLY. CUTOFF CONCENTRATION FOR DETECTED RESULT: THC (MARIJUANA): 50 NG/ML UR BARBITURATE NON DETECTED NON DETECTED 09/08/2024 11:51 AM CDT [facility] Comment: FOR MEDICAL USE ONLY. CUTOFF CONCENTRATION FOR DETECTED RESULT: BARBITUATES: 200 NG/ML UR FENTANYL NON DETECTED NON DETECTED 09/08/2024 11:51 AM CDT [facility] Comment: FOR MEDICAL USE ONLY. CUTOFF CONCENTRATION FOR DETECTED RESULT: FENTANYL: 1.0 NG/ML Urine Non-Phlebotomy Collection / Unknown 09/08/2024 11:03 AM CDT 09/08/2024 11:36 AM CDT us Trinh Ott Page PAC URINE ORDERABLES Final Resul t [facility] [address] [place] [address] * Culture, Blood [id number] (09/08/2024 10:53 AM CDT) Only the most recent of2 resultswithin the time period is included. [facility] CULTURE RESULTS NO GROWTH WITHIN 5 DAYS, FINAL RESULT 09/13/2024 12:00 PM CDT [facility] Culture (Peripheral Vein) Venipuncture / Unknown 09/08/2024 10:53 AM CDT 09/08/2024 11:11 AM CDT Trinh Ott Page PAC MICROBIOLOGY - GENERAL ORDER MANJU Final Result Performing Organization Address City/[facility]/ZIP Co de Phone Number [facility] [address] [place] [address], [place] * Sed Rate (Esr) [id number] (09/08/2024 10:35 AM CDT) ESR (SED RATE, ERYTHROCYTE SEDIMENTATION RATE) 15 <20 mm/h 09/08/2024 11:11 AM CDT [facility] Comment: Patients presenting with increased level of fibrinogen, gamma globulins, or abnormally shaped RBCs could affect the results for the erythrocyte sedimentation rate (ESR). Results should be clinically correlated. Blood Venipuncture / Unknown 09/08/2024 10:35 AM CDT 09/08/2024 10:45 AM CDT us Trinh Santana PAC HEMATOLOGY ORDERABLES Final Result Performing Organization Address [facility] Co de Phone Number [facility] [address] [place] [address] * Lactic Acid (Lactate) (09/08/2024 10:35 AM CDT) LACTIC ACID 1.3 0.7 - 2.0 mmol/L 09/08/2024 11:06 AM CDT [facility] Blood Venipuncture / Unknown 09/08/2024 10:35 AM CDT 09/08/2024 10:45 AM CDT Trinh Ott Page PAC CHEMISTRY ORDERABLES Final R esult [facility] [address] [place] [address] * (ABNORMAL) HCG Beta Subunit Serum Quant (09/08/2024 10:35 AM CDT) HCG BETA SUBUNIT, QUANT 73,360.14( H) 0.00 - 5.00 mIU/mL 09/08/2024 11:33 AM CDT [facility] Blood Venipuncture / Unknown 09/08/2024 10:35 AM CDT 09/08/2024 10:45 AM CDT Narrative [facility] - 09/08/2024 11:33 AM CDT HCG [...] Page PAC CHEMISTRY ORDERABLES Final R esult [facility] [address] [place] [address] * (ABNORMAL) CMP (Comprehensive Metabolic Panel) (09/08/2024 10:35 AM CDT) Pathologist [facility] SODIUM 138 136 - 145 mmol/L 09/08/2024 11:07 AM CDT [facility] POTASSIUM 3.7 3.5 - 5.1 mmol/L 09/08/2024 11:07 AM CDT [facility] CHLORIDE 106 98 - 107 mmol/L 09/08/2024 11:07 AM T [facility] CO2, VENOUS 24 22 - 30 mmol/L 09/08/2024 11:07 AM T [facility] ANION GAP 11.7 <18.0 mmol/L 09/08/2024 11:07 AM T [facility] GLUCOSE 75 70 - 99 mg/dL 09/08/2024 11:07 AM CDT [facility] BUN 7 5 - 18 mg/dL 09/08/2024 11:07 AM T [facility] CREATININE, BLOOD 0.53(L) 0.60 - 1.00 mg/dL 09/08/2024 11:07 AM T [facility] BUN/CREATININE RATIO 13 12 - 20 ratio 09/08/2024 11:07 AM [facility] TOTAL PROTEIN 7.1 6.0 - 8.0 g/dL 09/08/2024 11:07 AM T [facility] ALBUMIN 3.9 3.5 - 5.0 g/dL 09/08/2024 11:07 AM [facility] A/G RATIO 1.2 1.0 - 2.2 09/08/2024 11:07 AM [facility] CALCIUM 8.5(L) 8.7 - 10.5 mg/dL 09/08/2024 11:07 AM T [facility] T BILI 0.1(L) 0.2 - 1.2 mg/dL 09/08/2024 11:07 AM T [facility] SGOT (AST) 24 <43 U/L 09/08/2024 11:07 AM T [facility] SGPT (ALT) 21 <56 U/L 09/08/2024 11:07 AM T [facility] ALKALINE PHOSPHATASE 51 40 - 150 U/L 09/08/2024 11:07 AM T [facility] GFR, ESTIMATED >60 >=60 09/08/2024 11:07 AM CDT [facility] Comment: Creatinine Clearance is the preferred criteria for selecting drug dose adjustments in renally impaired patients. The GFR is provided as additional pertinent clinical information. GFR is reported in mL/min/1.73 sq m. Calculation based on the Chronic Kidney Disease Epidemiology Collaboration (CKD- EPI) equation refit without adjustment for race. GFR, EST. >60 >=60 025 11:07 AM CDT [facility] GFR, EST. NONAFRICAN >60 >=60 09/08/2024 11:07 AM CDT [facility] Blood Venipuncture / Unknown 09/08/2024 10:35 AM CDT 09/08/2024 10:45 AM CDT Trinh Santana PAC CHEMISTRY ORDERABLES Final R esult Performing Organization Address City/[facility]/ZIP Co de Phone Number [facility] [address] [place] [address] * (ABNORMAL) C-Reactive Protein Qnt (Crp) (09/08/2024 10:35 AM CDT) C-REACTIVE PROTEIN 4.45(H) <0.50 mg/dL 09/08/2024 11:22 AM CDT [facility] Blood Venipuncture / Unknown 09/08/2024 10:35 AM CDT 09/08/2024 10:45 AM CDT Trinh Ott Page PAC CHEMISTRY ORDERABLES Final R esult Performing Organization Address City/[facility] Co de Phone Number [facility] [address] [place] [address] from Last 3 Months Insurance [place]ICA[place] [facility] Advance Directives * Full Code (Latest [...] measures to stabilize the patient. Care Teams Mineral [employer] Insulation Supervisor Relationship Specialty Start Date End Date Charis Lucas PA [address] [place] [address] PCP - General Family Medicine 09/08/24
== END 2024-10-18 21:00 | disposition left against medical advice (07) ==
LOC: ANHED 21:06
DX: H57.89 Other specified disorders of eye and adnexa (principal)
CPT/HCPCS: 99199

== ENCOUNTER 2025-02-21 23:50 | Observation (INO) | payer OTHER, BC, SELFPAY ==
[2025-02-22 00:03] VITALS: BP 157/88; PULSE 71
[2025-02-22 00:21] VITALS: BP 69/41; PULSE 78
[2025-02-22 00:30] VITALS: BP 148/87; PULSE 80; BMI 25.2
--- NOTE | 2025-02-22 00:30 | OBADM ---
This patient, Jeannie Chase, admitted to the OB room Labor/Delivery/Recovery 106 for observation. Patient/family oriented to hospital policies and general routines including ID bracelet, bed and alarms, visiting hours, pain management, procedures, bathroom and other care routines, personal items, smoking policy, room service/diet, and visiting hours. Patient/Family are encouraged to report perceived risks to care and to ask questions if they do not understand what they are told or what they should do.
--- NOTE | 2025-03-11 09:23 | PM.OBTRLD ---
OB - Triage/Final Diagnosis Visit Information Comments/Additional reasons for admission: I have assessed the risk for this patient, Jeannie Chase, and determined that she would benefit from observation care. Final Diagnosis (1) False labor: Code(s): O47.9 - False labor, unspecified Status: Acute
== END 2025-02-22 00:45 | disposition home or self-care (01) ==
PROVIDERS: Admitting Provider Obstetrics & Gynecology; Visit Provider Obstetrics & Gynecology
DX: O47.1 False labor at or after 37 completed weeks of gestation (principal); Z3A.37 37 weeks gestation of pregnancy
CPT/HCPCS: G0378; G0379